=== PATIENT | female | born 1975 | race Caucasian/White ===

== ENCOUNTER 2020-07-21 20:20 | Emergency (ER) | payer OTHER, SELFPAY ==
--- NOTE | 2020-07-21 | US_ITS ---
EXAMINATION: ABDOMINAL ULTRASOUND LIMITED CLINICAL INFORMATION: Right upper quadrant pain. COMPARISON: None. TECHNIQUE: Real-time imaging of the right upper quadrant abdominal viscera. FINDINGS: PANCREAS: The visualized pancreatic head and body are normal in appearance. The remainder of the pancreas is obscured from visualization by the overlying bowel gas. LIVER: The liver is of normal size and echogenicity without focal lesions nor intrahepatic biliary ductal dilation. GALLBLADDER: Normal. The gallbladder is physiologically distended without evidence of stones, sludge, polyps, wall thickening or pericholecystic fluid. COMMON BILE DUCT: The common duct measures 0.8 cm in diameter. RIGHT KIDNEY: Normal. No hydronephrosis. No renal calculi or focal parenchymal lesions. The kidney measures 10.7 cm in maximum dimension. FREE FLUID: None. IMPRESSION: Mild dilation to the extrahepatic common duct. Otherwise, unremarkable limited right upper quadrant ultrasound. No evidence for cholelithiasis.
[2020-07-21 20:30] VITALS: BP 155/78; PULSE 84; RESP 18; TEMP 37.7; BMI 30.1
--- NOTE | 2020-07-21 21:12 | ED.ABDPAIN ---
HPI - Abdominal Pain General Chief Complaint: Abdominal Pain Stated Complaint: Abdominal Pain Time Seen by Provider: 07/21/20 21:12 History of Present Illness HPI narrative: This is a 44-year-old female who presents with 2 days of epigastric /right upper quadrant abdominal discomfort associated with mild nausea but denies any episodes of vomiting and has had a decrease in appetite as well. The pain she describes as crampy in nature and is non radiating and does not worsen with food intake. Otherwise, patient denies fevers, chills, shortness of breath, chest pain / palpitations, diarrhea, or urinary pain / burning / frequency. Related Data Previous Rx's Medication Instructions Recorded omeprazole 40 mg PO DAILY #30 cap 07/22/20 Allergies Allergy/AdvReac Type Severity Reaction Status Date / Time ibuprofen [IBUPROFEN] Allergy Intermediate HIVES Verified 07/21/20 21:46 amoxicillin [AMOXICILLIN] Allergy Unknown HIVES, Verified 07/21/20 21:46 anaphylaxis aspirin [ASPIRIN] Allergy Unknown HIVES, Verified 07/21/20 21:46 anaphylaxis diphenhydramine Allergy Unknown HIVES Verified 07/21/20 21:46 [From BENADRYL] penicillin V Allergy Unknown anaphylaxis Verified 07/21/20 21:46 Penicillins [PENICILLINS] Allergy Unknown HIVES Verified 07/21/20 21:46 pseudoephedrine Allergy Unknown HIVES Verified 07/21/20 21:46 [From SUDAFED] Benadryl Allergy Unknown hives Uncoded 12/20/19 00:00 Peanuts Allergy Unknown anaphylaxis Uncoded 12/20/19 00:00 Shellfish Allergy Unknown anaphylaxis Uncoded 12/20/19 00:00 Review of Systems Review of Systems Pertinent positives and negatives as stated in HPI 10 point review of systems is otherwise negative. Physical Exam Vital Signs and I&O and Narrative: Vital Signs and I&O: Vital Signs Temp 98.6 F 07/21/20 21:40 Pulse 66 07/22/20 00:20 Resp 14 07/22/20 00:20 BP 112/53 L 07/22/20 00:20 Pulse Ox 98 07/22/20 00:20 Intake & Output 07/21/20 07/21/20 07/22/20 06:59 18:59 06:59 Weight 82.024 kg Body Mass Index 30.1 VITAL SIGNS: Reviewed. GENERAL: Well developed, well nourished, in no acute distress. HEAD: Normocephalic/atraumatic, EYES: PERRLA, EOMI intact without pain, no nystagmus/pallor/icterus noted EARS: Ext canals without abnormality, TMs non-bulging and non-erythematous NOSE: Nares patent bilateral OROPHARYNX: no oral lesions noted, posterior pharynx clear and non-erythematous without noted tonsillar enlargement/erythema/exudates NECK: Supple, no adenopathy LUNGS: Normal breath sounds. No adventitious sounds or accessory muscle use. SpO2<> CARDIOVASCULAR: Regular rate and rhythm without noted murmurs, no JVD or lower extremity edema. ABDOMEN: Soft, Mild tenderness on palpation over right upper quadrant, non-distended with bowel sounds. No rigidity. No guarding. No palpable masses or hernias noted MUSCULOSKELETAL: No tenderness, deformities, or effusions noted on gross inspection. EXTREMITIES: No cyanosis, clubbing or edema. SKIN: Inspection of the skin reveals no rashes, ulcerations, jaundice, pallor, or petechiae. NEUROLOGIC: Alert and oriented x 4. Strength and sensation to light touch were grossly intact Course Course Hospital Course: Review of all laboratory, urinalysis, and imaging results is negative for any acute findings to suggest cholelithiasis, cholecystitis, pancreatitis. Patient's nausea resolved with Zofran and she reports improvement after receiving the GI cocktail. All results and findings were discussed with her at bedside and she is aware that she will be discharged with an antacid. MDM - Abdominal Pain MDM Narrative Medical decision making narrative: this is a 44-year-old female with history and clinical presentation suggestive of possible cholecystitis, pancreatitis, gastritis, and doubt diverticulitis. Lab Data Result diagrams: 07/21/20 21:27 07/21/20 21:27 Labs: Lab Results 07/21/20 07/21/20 07/21/20 Range/Units 21:27 21:27 21:44 WBC 6.9 (4.8-10.8) X10*3/uL RBC 5.34 (4.20-5.50) X10*6/uL Hgb 13.7 (12.0-16.0) g/dl Hct 43.3 (37-47) % MCV 81.1 (80-98) fL MCH 25.7 L (27.0-33.0) pg MCHC 31.6 (31.0-35.0) g/dl RDW 14.6 (11.0-16.0) % Plt Count 296 (160-400) X10*3/uL MPV 9.0 L (9.4-12.3) fL Immature Gran % (Auto) 0.4 (0.0-0.4) % Neut % (Auto) 57.3 (45-73) % Lymph % (Auto) 34.3 (20-40) % Barry % (Auto) 5.2 (2-11) % Eos % (Auto) 2.5 (0-4) % Baso % (Auto) 0.3 (0-2) % Neut # (Auto) 4.0 (2.0-8.3) X10*3/uL Lymph # (Auto) 2.4 (1.2-4.9) X10*3/uL Barry # (Auto) 0.4 (0.1-1.2) X10*3/uL Eos # (Auto) 0.2 (0.0-0.4) X10*3/uL Baso # (Auto) 0.0 (0.0-0.2) X10*3/uL Abs Immat Gran (auto) 0.03 (0.00-0.03) X10*3/uL Absolute Nucleated RBC 0.000 (0.0-0.012) X10*3/uL Nucleated RBC % (auto) 0.0 (0.0-0.2) /100WBC Sodium 140 (135-145) mmol/L Potassium 4.2 (3.3-5.1) mmol/l Chloride 106 (96-108) mmol/L Carbon Dioxide 25 (22-29) mmol/L Anion Gap 13 (12-20) BUN 10 (9-16) mg/dL Creatinine 0.85 (0.5-1.4) mg/dL Estim Creat Clear Calc 88.4 Estimated GFR > 60 Random Glucose 107 (60-115) mg/dL Calcium 8.7 (8.4-10.2) mg/dL Total Bilirubin 0.2 (0.0-1.0) mg/dL AST 13 (5-31) U/L ALT 12 (0-31) U/L Alkaline Phosphatase 70 (39-117) U/L Total Protein 7.2 (6.5-8.0) g/dL Albumin 4.2 (3.5-5.0) g/dL Lipase 6 L (8-78) U/L Urine Color YELLOW Urine Appearance HAZY Urine pH 5.5 (5.0-8.0) Ur Specific [place] >= 1.030 H (1.005-1.025) Urine Protein NEG (NEG-TRACE) MG/DL Urine Glucose (UA) NEG (NEG) MG/DL Urine Ketones NEG (NEG) MG/DL Urine Blood NEG (NEG) Urine Nitrite NEG (NEG) Ur Leukocyte Esterase NEG (NEG) Urine Test NEGATIVE (NEGATIVE) Discharge Plan Discharge Clinical Impression: Gastritis Qualifiers: Gastritis type: unspecified gastritis Chronicity: unspecified Gastritis bleeding: without bleeding Qualified Code(s): K29.70 - Gastritis, unspecified, without bleeding Patient Disposition: Home, Self-Care Instructions: Gastritis (ED), Diet for Stomach Ulcers and Gastritis (ED) Additional Instructions: 1. resume all home medications as prescribed. The patient and/or family acknowledge understanding of results (as applicable), diagnosis, treatment plan, need for follow up, and symptoms that should prompt a return to the emergency room. Prescriptions: New omeprazole 40 mg capsule,delayed release(DR/EC) 40 mg PO DAILY Qty: 30 RF: 0 Referrals: Lonnie Smith MD [Primary Care Provider] - 2 days ( discuss further evaluation and management for your gastritis) PMFSH Past Medical History Source: nursing notes reviewed Medical History Asthma Cardiac arrhythmia COPD (chronic obstructive pulmonary disease) Social History Social History Smoking Status: Current every day smoker Use of substances other than those prescribed or required for medical reasons: Yes Substance Use Type: Heroin Substance Use Frequency: Daily Advance Directives: No Advance Directives Information Provided: No
[2020-07-21 21:35] LABS: MANUAL DIFF FLAG NO
[2020-07-21 21:39] LABS: Basophils Percent Auto 0.3 % (0-2); Eosinophils Absolute Auto 0.2 X10*3/uL (0.0-0.4); Eosinophils Percent Auto 2.5 % (0-4); Hematocrit 43.3 % (37-47); Hemoglobin 13.7 g/dl (12.0-16.0); Imm Gran Abs Auto 0.03 X10*3/uL (0.00-0.03); Imm Gran Pct Auto 0.4 % (0.0-0.4); Lymphocytes Absolute Auto 2.4 X10*3/uL (1.2-4.9); Lymphocytes Percent Auto 34.3 % (20-40); Mean Corpuscular HGB Conc 31.6 g/dl (31.0-35.0); Mean Corpuscular Hemoglobin 25.7 pg (27.0-33.0); Mean Corpuscular Volume 81.1 fL (80-98); Monocytes Absolute Auto 0.4 X10*3/uL (0.1-1.2); Monocytes Percent Auto 5.2 % (2-11); Neutrophils Percent Auto 57.3 % (45-73); Platelet Count 296 X10*3/uL (160-400); Red Blood Count 5.34 X10*6/uL (4.20-5.50); Red Cell Distribution Width 14.6 % (11.0-16.0); White Blood Count 6.9 X10*3/uL (4.8-10.8)
[2020-07-21 21:40] VITALS: BP 118/47; PULSE 77; RESP 16; TEMP 37; O2SAT 100
[2020-07-21] MEDS: ondansetron HCL 4 MG/2 ML VIAL IVPUSH (21:47)
[2020-07-21 22:07] LABS: Alanine Aminotransferase 12 U/L (0-31); Albumin Level 4.2 g/dL (3.5-5.0); Alkaline Phosphatase 70 U/L (39-117); Anion Gap 13 (12-20); Aspartate Amino Transferase 13 U/L (5-31); Bilirubin Total 0.2 mg/dL (0.0-1.0); Blood Urea Nitrogen 10 mg/dL (9-16); Calcium 8.7 mg/dL (8.4-10.2); Carbon Dioxide 25 mmol/L (22-29); Chloride 106 mmol/L (96-108); Creatinine Clr Calc Pharmacy 88.4; Estimated Glomerular Filt Rate > 60; Glucose Random 107 mg/dL (60-115); Lipase 6 U/L (8-78); Potassium 4.2 mmol/l (3.3-5.1); Sodium 140 mmol/L (135-145); Total Protein 7.2 g/dL (6.5-8.0)
[2020-07-21 22:14] LABS: Glucose Urine UA NEG (NEG); Leukocyte Esterase Urine NEG (NEG); Nitrite Urine NEG (NEG); PH 5.5 (5.0-8.0); Specific Gravity - Urine >= 1.030 (1.005-1.025); Urine Blood NEG (NEG); Urine Ketones NEG (NEG); Urine Protein NEG (NEG-TRACE)
[2020-07-21 22:47] LABS: Appearance Urine HAZY; Color Urine YELLOW
[2020-07-21 23:24] LABS: UPreg QC Valid YES; Urine Pregnancy NEGATIVE (NEGATIVE)
--- NOTE | 2020-07-21 23:35 | PC.NURSE ---
PT IS SLEEPING AT THIS TIME WITH NO SIGN OF DISTRESS.
[2020-07-21 23:42] VITALS: BP 107/56; PULSE 63; RESP 18; O2SAT 99
[2020-07-22] MEDS: Lidocaine HCl Viscous 2 % 15 ML SOLUTION 10 ML MUCOUS MEM (00:11)
[2020-07-22] MEDS: Magnesium Hydrox/Alum Hydrox 30 ML ORAL.SUSP PO (00:12)
[2020-07-22 00:20] VITALS: BP 112/53; PULSE 66; RESP 14; O2SAT 98
--- NOTE | 2020-07-22 00:44 | PC.NURSE ---
Will review discharge instructions and medications. Pt verbalized understanding.
== END 2020-07-22 00:51 | disposition home or self-care (01) ==
PROVIDERS: Emergency Provider Student in an Organized Health Care Education/Training Program; PCP Internal Medicine
DX: K29.70 Gastritis, unspecified, without bleeding (principal)
CPT/HCPCS: 36415; 76705; 80053; 81003; 81025; 83690; 85025; 96374; 99284; J2405

== ENCOUNTER 2020-12-06 08:54 | Outpatient (REF) | payer OTHER, SELFPAY ==
[2020-12-06 09:43] LABS: MANUAL DIFF FLAG NO
[2020-12-06 10:01] LABS: Basophils Percent Auto 0.4 % (0-2); Eosinophils Absolute Auto 0.2 X10*3/uL (0.0-0.4); Hematocrit 43.3 % (37-47); Hemoglobin 13.7 g/dl (12.0-16.0); Imm Gran Abs Auto 0.02 X10*3/uL (0.00-0.03); Imm Gran Pct Auto 0.4 % (0.0-0.4); Lymphocytes Absolute Auto 1.9 X10*3/uL (1.2-4.9); Lymphocytes Percent Auto 33.5 % (20-40); Mean Corpuscular HGB Conc 31.6 g/dl (31.0-35.0); Mean Corpuscular Hemoglobin 25.3 pg (27.0-33.0); Monocytes Absolute Auto 0.4 X10*3/uL (0.1-1.2); Neutrophils Absolute Auto 3.1 X10*3/uL (2.0-8.3); Neutrophils Percent Auto 55.7 % (45-73); Platelet Count 268 X10*3/uL (160-400); Red Blood Count 5.41 X10*6/uL (4.20-5.50); Red Cell Distribution Width 14.9 % (11.0-16.0); White Blood Count 5.6 X10*3/uL (4.8-10.8)
[2020-12-06 10:28] LABS: Alanine Aminotransferase 14 U/L (0-31); Albumin Level 4.2 g/dL (3.5-5.0); Alkaline Phosphatase 75 U/L (39-117); Anion Gap 13 (12-20); Aspartate Amino Transferase 14 U/L (5-31); Bilirubin Total 0.2 mg/dL (0.0-1.0); Blood Urea Nitrogen 12 mg/dL (9-16); Calcium 8.6 mg/dL (8.4-10.2); Carbon Dioxide 23 mmol/L (22-29); Chloride 107 mmol/L (96-108); Cholesterol 194 mg/dL; Estimated Glomerular Filt Rate > 60; Glucose Fasting 103 mg/dL (60-99); HDL Cholesterol 54 mg/dL; LDL Cholesterol Calculated 126 mg/dl; Potassium 4.3 mmol/L (3.3-5.1); Sodium 139 mmol/L (135-145); Triglycerides 74 mg/dL
[2020-12-06 10:49] LABS: Thyroid Stimulating Hormone 3.38 uIU/mL (0.32-4.0)
== END 2020-12-06 08:55 | disposition home or self-care (01) ==
LOC: HO.LAB 08:54
PROVIDERS: PCP Internal Medicine; Visit Provider Internal Medicine
DX: Z00.00 Encounter for general adult medical examination without abnormal findings (principal); E11.9 Type 2 diabetes mellitus without complications; E03.9 Hypothyroidism, unspecified
CPT/HCPCS: 36415; 80053; 80061; 84443; 85025

== ENCOUNTER 2021-02-11 11:07 | Emergency (ER) | payer OTHER, SELFPAY ==
--- NOTE | ~2021-02-11 | XR_ITS ---
EXAMINATION: XR ANKLE, LEFT XR FOOT, LEFT CLINICAL INFORMATION: Trauma, pain COMPARISON: None TECHNIQUE: 2 views left ankle, 2 views left foot, and a lateral view of the combined left ankle and foot are obtained for a total of 5 views. FINDINGS: There is mild ankle soft tissue swelling, greater on lateral side. The lateral view suggests small ankle capsular effusion. The malleoli are intact and the ankle mortise is symmetric. There is no visible ankle or foot fracture or dislocation. The retrocalcaneal recess is preserved. The subtalar joint is unremarkable. There are borderline posterior and small plantar calcaneal spurs. The midfoot and forefoot are unremarkable. XR/XR foot LT min 3V IMPRESSION: 1. Mild ankle soft tissue swelling with palpable small ankle capsular effusion. 2. No visible fracture or dislocation ankle or foot.
--- NOTE | ~2021-02-11 | XR_ITS ---
EXAMINATION: XR ANKLE, LEFT XR FOOT, LEFT CLINICAL INFORMATION: Trauma, pain COMPARISON: None TECHNIQUE: 2 views left ankle, 2 views left foot, and a lateral view of the combined left ankle and foot are obtained for a total of 5 views. FINDINGS: There is mild ankle soft tissue swelling, greater on lateral side. The lateral view suggests small ankle capsular effusion. The malleoli are intact and the ankle mortise is symmetric. There is no visible ankle or foot fracture or dislocation. The retrocalcaneal recess is preserved. The subtalar joint is unremarkable. There are borderline posterior and small plantar calcaneal spurs. The midfoot and forefoot are unremarkable. XR/XR ankle LT min 3V IMPRESSION: 1. Mild ankle soft tissue swelling with palpable small ankle capsular effusion. 2. No visible fracture or dislocation ankle or foot.
[2021-02-11 11:28] VITALS: BP 112/70; PULSE 78; RESP 18; TEMP 36.5; O2SAT 95; BMI 34.1
--- NOTE | 2021-02-11 13:12 | ED_ITS ---
HPI - Extremity Injury (Lower) General Chief Complaint: Extremity Injury, Lower Stated Complaint: ankle injury - fall Time Seen by Provider: 02/11/21 13:12 History of Present Illness HPI Narrative: Patient complains of left ankle pain after falling and twisting it 2 days ago, no other injury no head injury no headache no neck pain no back pain no numbness weakness or tingling no other extremity injury Related Data Home Medications Medication Instructions Recorded Confirmed aripiprazole 10 mg tablet 10 mg PO QAM 11/21/20 11/21/20 methadone 40 mg soluble tablet 50 mg PO DAILY tab 11/21/20 11/21/20 zolpidem 10 mg tablet 10 mg PO BEDTIME PRN 11/21/20 11/21/20 Previous Rx's Medication Instructions Recorded omeprazole 40 mg PO DAILY #30 cap 07/22/20 albuterol sulfate 90 mcg/actuation 2 puff PO Q6H PRN #8.5 g 11/21/20 aerosol inhaler Allergies Allergy/AdvReac Type Severity Reaction Status Date / Time ibuprofen [IBUPROFEN] Allergy Intermediate HIVES Verified 02/11/21 11:30 amoxicillin [AMOXICILLIN] Allergy Unknown HIVES, Verified 02/11/21 11:30 anaphylaxis aspirin [ASPIRIN] Allergy Unknown HIVES, Verified 02/11/21 11:30 anaphylaxis diphenhydramine Allergy Unknown HIVES Verified 02/11/21 11:30 [From BENADRYL] penicillin V Allergy Unknown anaphylaxis Verified 02/11/21 11:30 Penicillins [PENICILLINS] Allergy Unknown HIVES Verified 02/11/21 11:30 pseudoephedrine Allergy Unknown HIVES Verified 02/11/21 11:30 [From SUDAFED] Benadryl Allergy Unknown hives Uncoded 12/20/19 00:00 Peanuts Allergy Unknown anaphylaxis Uncoded 12/20/19 00:00 Shellfish Allergy Unknown anaphylaxis Uncoded 12/20/19 00:00 Review of Systems Review of Systems: Positive for left ankle pain Negatives are no headache no loss of consciousness no neck pain no back pain no numbness weakness or tingling PMFSH Past Medical History Source: nursing notes reviewed Medical History (Updated 02/12/21 @ 00:01 by Alyssa Hidalgo) Asthma Cardiac arrhythmia COPD (chronic obstructive pulmonary disease) Surgical History No history of previous surgery Family History Family History (Updated 11/21/20 @ 10:34 by Lucila Thomas) Mother Tumor of lung Chronic asthma Father No problems noted. Sister HIV (human immunodeficiency virus infection) Social History Social History (Updated 11/21/20 @ 10:34 by Lucila Thomas) Alcohol intake: never Smoking Status: Current every day smoker Cigarettes Per Day: 3 Substance Use Type: Heroin Advance Directives: No Advance Directives Information Provided: Yes Physical Exam Vital Signs: Vital Signs: Last Vital Signs Temp 97.7 F 02/11/21 11:28 Pulse 78 02/11/21 11:28 Resp 18 02/11/21 11:28 BP 112/70 02/11/21 11:28 Pulse Ox 95 02/11/21 11:28 Body Mass Index 34.1 General appearance no acute distress, and cooperative A&O x3 Head is normocephalic atraumatic Neck supple nontender Back full range of motion Respiratory no acute distress Extremities the left ankle has tenderness and swelling around lateral malleolus and dorsal proximal lateral aspect of the foot, neurovascular intact distal, skin is otherwise intact without laceration or wound Other extremities normal Neuro no focal motor or sensory deficit Course Course Course Narrative: No broken bone was seen on x-ray, but there was a small effusion seen Patient complains that it is difficult for her to dorsiflex her foot, but the foot was held in a middle position it was not flopping and I suspect the difficulty dorsiflexing the foot is from swelling and pain, but I did advise patient to follow closely with Orthopedics for recheck and make sure that as swelling and pain he has dorsiflexion becomes normal so she will follow with [facility] [place] [facility] Discharge Plan Discharge Clinical Impression: Left ankle sprain Patient Disposition: Home, Self-Care Additional Instructions: X-ray showed some fluid in the joint which can happen after injuries but no broken bone was seen Your difficulty flexing the foot upwards should be rechecked in a few days follow with orthopedist for further evaluation, you can call them to make an appointment Return any time any worse condition or any concerns Elevate foot and ankle and apply ice Prescriptions: No Action omeprazole 40 mg capsule,delayed release(DR/EC) 40 mg PO DAILY Qty: 30 RF: 0 zolpidem 10 mg tablet 10 mg PO BEDTIME PRNRF: 0 aripiprazole 10 mg tablet 10 mg PO QAM RF: 0 methadone 40 mg tablet,soluble 50 mg PO DAILY RF: 0 albuterol sulfate 90 mcg/actuation HFA aerosol inhaler 2 puff PO Q6H PRN (Reason: bronchospasm) Qty: 8.5 RF: 8 Referrals: Rao Otoole MD [Physician] - 2 days (Ankle sprain, difficulty with dorsiflexion) Interventions: ED Discharge Assessment Last Done: 02/11/21 13:22 Discharge Date/Time: 02/11/21 13:23
== END 2021-02-11 13:23 | disposition home or self-care (01) ==
PROVIDERS: Emergency Provider Emergency Medicine; PCP Internal Medicine
DX: S93.402A Sprain of unspecified ligament of left ankle, initial encounter (principal); W06.XXXA Fall from bed, initial encounter; M25.472 Effusion, left ankle; Y93.84 Activity, sleeping; Y92.013 Bedroom of single-family (private) house as the place of occurrence of the external cause; Y99.9 Unspecified external cause status; F17.200 Nicotine dependence, unspecified, uncomplicated; F11.90 Opioid use, unspecified, uncomplicated
CPT/HCPCS: 73610; 73630; 99283

== ENCOUNTER 2021-07-21 13:47 | Emergency (ER) | payer OTHER, SELFPAY ==
[2021-07-21 15:28] VITALS: BP 97/65; PULSE 80; RESP 18; TEMP 37.1; O2SAT 97; BMI 34.1
== END 2021-07-21 18:10 | disposition left against medical advice (07) ==
LOC: HO.ED 18:05
PROVIDERS: Emergency Provider Emergency Medicine; PCP Internal Medicine
DX: M54.50 Low back pain, unspecified (principal)
CPT/HCPCS: 99281

== ENCOUNTER 2021-07-22 12:55 | Emergency (ER) | payer OTHER, SELFPAY ==
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
[2021-07-22 13:36] VITALS: BP 116/70; PULSE 82; RESP 18; TEMP 35.9; O2SAT 96; BMI 34.1
[2021-07-22 18:00] VITALS: BP 120/65; PULSE 67; RESP 16; TEMP 36.3; O2SAT 98
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
== END 2021-07-22 19:03 | disposition home or self-care (01) ==
PROVIDERS: Emergency Provider Emergency Medicine; PCP Internal Medicine
DX: S06.0X9A Concussion with loss of consciousness of unspecified duration, initial encounter (principal); S13.4XXA Sprain of ligaments of cervical spine, initial encounter; S29.011A Strain of muscle and tendon of front wall of thorax, initial encounter; S16.1XXA Strain of muscle, fascia and tendon at neck level, initial encounter; R07.81 Pleurodynia; M54.6 Pain in thoracic spine; G44.309 Post-traumatic headache, unspecified, not intractable; V43.62XA Car passenger injured in collision with other type car in traffic accident, initial encounter; Y93.9 Activity, unspecified; Y92.410 Unspecified street and highway as the place of occurrence of the external cause; Y99.9 Unspecified external cause status; Z79.899 Other long term (current) drug therapy
CPT/HCPCS: 70450; 71101; 72072; 72125; 73000; 99284

== ENCOUNTER 2021-07-29 09:38 | Outpatient (REF) | payer OTHER, SELFPAY ==
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
[2021-07-29 09:47] LABS: MANUAL DIFF FLAG NO
[2021-07-29 10:04] LABS: Basophils Percent Auto 0.4 % (0-2); Eosinophils Absolute Auto 0.2 X10*3/uL (0.0-0.4); Eosinophils Percent Auto 4.6 % (0-4); Hematocrit 41.9 % (37-47); Hemoglobin 13.1 g/dl (12.0-16.0); Imm Gran Abs Auto 0.01 X10*3/uL (0.00-0.03); Imm Gran Pct Auto 0.2 % (0.0-0.4); Lymphocytes Percent Auto 40.8 % (20-40); Mean Corpuscular HGB Conc 31.3 g/dl (31.0-35.0); Mean Corpuscular Volume 80.1 fL (80-98); Mean Platelet Volume 8.9 fL (9.4-12.3); Monocytes Absolute Auto 0.5 X10*3/uL (0.1-1.2); Monocytes Percent Auto 10.2 % (2-11); Neutrophils Absolute Auto 2.2 X10*3/uL (2.0-8.3); Neutrophils Percent Auto 43.8 % (45-73); Platelet Count 248 X10*3/uL (160-400); Red Blood Count 5.23 X10*6/uL (4.20-5.50); Red Cell Distribution Width 14.3 % (11.0-16.0)
[2021-07-29 10:30] LABS: Alanine Aminotransferase 18 U/L (0-31); Albumin Level 3.9 g/dL (3.5-5.0); Alkaline Phosphatase 83 U/L (39-117); Anion Gap 10 (12-20); Aspartate Amino Transferase 19 U/L (5-31); Bilirubin Total 0.5 mg/dL (0.0-1.0); Blood Urea Nitrogen 9 mg/dL (9-16); Calcium 9.2 mg/dL (8.4-10.2); Carbon Dioxide 27 mmol/L (22-29); Chloride 107 mmol/L (96-108); Estimated Glomerular Filt Rate > 60; Glucose Random 94 mg/dL (60-115); Potassium 4.2 mmol/L (3.3-5.1); Sodium 140 mmol/L (135-145); Total Protein 6.8 g/dL (6.5-8.0)
== END 2021-07-29 09:39 | disposition home or self-care (01) ==
LOC: HO.XRAY 09:38
PROVIDERS: PCP Internal Medicine; Visit Provider Internal Medicine
DX: L03.115 Cellulitis of right lower limb (principal); M79.671 Pain in right foot
CPT/HCPCS: 36415; 73630; 80053; 85025

== ENCOUNTER 2024-06-14 12:32 | Outpatient (AMB) | payer OTHER, SELFPAY ==
[2024-06-14 12:41] VITALS: BP 136/70; PULSE 88; O2SAT 93; BMI 27.1
--- NOTE | 2024-06-14 12:41 | A.OFFPC_ITS ---
Vital Signs 06/14/24 12:41 Height 5 ft 5 in Weight 163 lb BMI 27.1 BP 136/70 Blood Pressure Location Rt brachial Position Sitting Pulse 88 Pulse Source Pulse Oximeter Pulse Oximetry (%) 93 Oxygen Delivery Method Room Air Intake Visit Reasons: LT shoulder pain Weeder Required: No Allergies ibuprofen [IBUPROFEN] Allergy (Intermediate, Verified 06/14/24 12:48) HIVES amoxicillin [AMOXICILLIN] Allergy (Unknown, Verified 06/14/24 12:48) HIVES, anaphylaxis aspirin [ASPIRIN] Allergy (Unknown, Verified 06/14/24 12:48) HIVES, anaphylaxis diphenhydramine [From BENADRYL] Allergy (Unknown, Verified 06/14/24 12:48) HIVES penicillin V Allergy (Unknown, Verified 06/14/24 12:48) anaphylaxis Penicillins [PENICILLINS] Allergy (Unknown, Verified 06/14/24 12:48) HIVES pseudoephedrine [From SUDAFED] Allergy (Unknown, Verified 06/14/24 12:48) HIVES Benadryl Allergy (Unknown, Uncoded 06/14/24 12:48) hives Peanuts Allergy (Unknown, Uncoded 06/14/24 12:48) anaphylaxis Shellfish Allergy (Unknown, Uncoded 06/14/24 12:48) anaphylaxis Medication List - Last Reconciled 06/14/24 by Lonnie Smith MD albuterol sulfate 90 mcg/actuation 2 puffs PO Q6H PRN epinephrine (EpiPen 2-Иван) 0.3 mg (0.3 mL) IM Q4H PRN Tobacco use date assessed: 06/14/24 Dental Screening Dental Screen Date: 06/14/24 Did you have a dental visit in the last 12 months?: No Did you have a dental problem in the last 6 months where you did not have access to dental care?: No Was dental information given to patient?: Patient has dentist HPI LT shoulder pain HPI Details left shoulder pain for a few weeks; no known injury [facility] Medical History (Updated 06/14/24 @ 14:00 by Lonnie Smith MD) Bilateral leg edema Class 1 obesity with body mass index (BMI) of 32.0 to 32.9 in adult Heroin use disorder, mild Right foot pain Cellulitis of right foot COPD (chronic obstructive pulmonary disease) Cardiac arrhythmia Asthma Surgical History No history of previous surgery Family History Mother Tumor of lung Chronic asthma Father No problems noted. Sister HIV (human immunodeficiency virus infection) Family/Other Substance use disorder Mental health disorder Social History Housing: Apartment Alcohol intake: never Patient Tobacco Use Status: Current everyday Tobacco user Tobacco use type: Cigarette Cigarette Packs Per Day: 1 e-Cigarette/Vaping Use: Never Used Second Hand Smoke Exposure: No Substance Use Type: Heroin service: No Current occupational status: unemployed Cognitive needs: No Hearing needs: No Vision needs: Yes Questionnaire PHQ-9 Over the last 2 weeks, how often have you been bothered by any of the following problems? 1. Little interest or pleasure in doing things: nearly every day 2. Feeling down, depressed, or hopeless: not at all 3. Trouble falling or staying asleep, or sleeping too much: not at all 4. Feeling tired or having little energy: not at all 5. Poor appetite or overeating: not at all 6. Feeling bad about yourself - or that you are a failure or have let yourself or your family down: more than half the days 7. Trouble concentrating on things, such as reading the newspaper or watching television: not at all 8. Moving or speaking so slowly that other people could have noticed. Or the opposite - being so fidgety or restless that you have been moving around a lot more than usual: not at all 9. Thoughts that you would be better off or of hurting yourself in some way: not at all Total score: 5 Depression Screening Interpretation: Negative Depression Screening Done: Yes Source: Developed by Drs. Coy Vidal, Page London, Petar Barber and colleagues, with an educational yesika from [employer]. Thrive Questionnaire Date Thrive assessed: 06/14/24 I am a: Patient What is your living situation today?: I have a steady place to live Within the past 12 months, did the food you bought not last and you didn't have the money to get more?: Never true Within the past 12 months, did you worry whether your food would run out before you got money to buy more?: Never true THRIVE Score: 0 AUDIT C Alcohol Use Questionnaire (AUDIT-C) 1. How often do you have a drink containing alcohol?: Never Total Score: 0 Score Reviewed/Action Taken: Yes BONNIE-7 AMB Questionnaire BONNIE-7 Date BONNIE - 7 assessed: 06/14/24 Feeling nervous, anxious, or on edge: 1 = Several days Not being able to stop or control worryin = Several days Worrying too much about different things: 0 = Not at all Trouble relaxin = Not at all Being so restless that it is hard to sit still: 0 = Not at all Becoming easily annoyed or irritable: 0 = Not at all Feeling afraid as if something awful might happen: 0 = Not at all Total BONNIE-7 score (0-4 normal; 5-9 mild; 10-14 moderate; 15-21 severe): 2 Source: Developed by Drs. Coy Vidal, Page oLndon, Petar Barber and colleagues, with an educational yesika from [employer]. BONNIE-7 Assessment Billing BONNIE-7 Assessment Tool: BONNIE-7 Assessment 66371 Review of Systems Const Denies chills, Denies headache(s) and Denies weight loss ENT Denies headache(s) Card Denies chest pain, Denies syncope, Denies irregular heart rhythm and Denies dyspnea Resp Denies chest congestion, Denies cough and Denies dyspnea GI Denies abdominal pain, Denies change in stool character, Denies nausea and Denies vomiting Musc Denies deformity and Denies joint swelling Neuro Denies syncope and Denies headache(s) Physical exam (Primary Care) Vital Signs: Last Vital Signs Pulse 88 06/14/24 12:41 BP 136/70 06/14/24 12:41 Pulse Ox 93 06/14/24 12:41 Oxygen Delivery Method Room Air 06/14/24 12:41 BMI result Body Mass Index 27.1 Tobacco/Smoking Status: Tobacco use Status Tobacco use date assessed 06/14/24 06/14/24 12:52 Patient Tobacco Use Status Current everyday Tobacco 06/14/24 12:44 Tobacco use type Cigarette 06/14/24 12:44 e-Cigarette/Vaping Use Never Used 06/14/24 12:44 PHQ-9: PHQ-9 Score PHQ-9: Total score 5 06/14/24 12:52 Depression Screening Interpretation: Negative Thrive Assessment: Date of Thrive Assessment Date Thrive assessed 06/14/24 06/14/24 12:52 Const General: cooperative, comfortable, no acute distress and alert Neck Neck: Yes no lymphadenopathy Thyroid: Thyroid normal Resp Effort & Inspection: normal respiratory effort Auscultation: clear to auscultation bilaterally Percussion: percussion normal Cardio Jugular venous distension: no JVD Palpation: normal PMI Rate: regular rate Rhythm: regular rhythm Heart sounds: S1 normal heart sound present and S2 normal heart sound present GI Inspection: Yes normal to inspection Palpation (GI): No hepatosplenomegaly present Skin General skin exam: no rashes or lesions noted Extrem General: Yes no clubbing, cyanosis or edema Assessment and Plan Assessment & Plan (1) Shoulder pain: Code(s): M25.519 - Pain in unspecified shoulder Plan: xr ice and nsaids Orders: Orders XR shoulder LT min 2V Today M25.519 - Pain in unspecified shoulder Coding Level of Care Code Est Pt Level 3 (99716) Diagnoses Shoulder pain M25.519 Additional Codes BONNIE-7 Assessment Billing - BONNIE-7 Assessment Tool: BONNIE-7 Assessment 35202 ([id number]) PHQ-9 - 63989 - PHQ-9 Billing: ([id number])
== END 2024-06-14 13:24 | disposition home or self-care (01) ==
PROVIDERS: PCP Internal Medicine; Visit Provider Internal Medicine
DX: M25.512 Pain in left shoulder (principal)
CPT/HCPCS: 99213

== ENCOUNTER 2024-12-28 13:42 | Outpatient (AMB) | payer OTHER, SELFPAY ==
--- NOTE | 2024-12-28 13:46 | A.OFFPC_ITS ---
Vital Signs 12/28/24 13:48 Height 5 ft 5 in Weight 180 lb BMI 30.0 BP 110/68 Blood Pressure Location Lt brachial Position Sitting Pulse 74 Pulse Source Pulse Oximeter Pulse Oximetry (%) 97 Oxygen Delivery Method Room Air Intake Visit Reasons: Annual PE Intake Note: Patient here for a physical exam Outbound Call Center Representative Required: No Accompanied by: Self / Same As Patient Allergies ibuprofen [IBUPROFEN] Allergy (Intermediate, Verified 12/28/24 13:49) HIVES amoxicillin [AMOXICILLIN] Allergy (Unknown, Verified 12/28/24 13:49) HIVES, anaphylaxis aspirin [ASPIRIN] Allergy (Unknown, Verified 12/28/24 13:49) HIVES, anaphylaxis diphenhydramine [From BENADRYL] Allergy (Unknown, Verified 12/28/24 13:49) HIVES penicillin V Allergy (Unknown, Verified 12/28/24 13:49) anaphylaxis Penicillins [PENICILLINS] Allergy (Unknown, Verified 12/28/24 13:49) HIVES pseudoephedrine [From SUDAFED] Allergy (Unknown, Verified 12/28/24 13:49) HIVES Benadryl Allergy (Unknown, Uncoded 06/14/24 12:48) hives Peanuts Allergy (Unknown, Uncoded 06/14/24 12:48) anaphylaxis Shellfish Allergy (Unknown, Uncoded 06/14/24 12:48) anaphylaxis Medication List - Last Reconciled 12/29/24 by Lonnie Smith MD albuterol sulfate 90 mcg/actuation 2 puffs PO Q6H PRN epinephrine (EpiPen 2-Иван) 0.3 mg (0.3 mL) IM Q4H PRN melatonin mg PO topiramate mg PO Tobacco use date assessed: 12/28/24 Dental Screening Dental Screen Date: 12/28/24 Did you have a dental visit in the last 12 months?: No Did you have a dental problem in the last 6 months where you did not have access to dental care?: No Was dental information given to patient?: Patient has dentist HPI Annual PE HPI Details asthma; stable; lives in half way house for substance abuse; doing well [facility] Medical History (Updated 12/29/24 @ 10:23 by Lonnie Smith MD) Bilateral leg edema Class 1 obesity with body mass index (BMI) of 32.0 to 32.9 in adult Heroin use disorder, mild Right foot pain Cellulitis of right foot COPD (chronic obstructive pulmonary disease) Cardiac arrhythmia Asthma Surgical History No history of previous surgery Family History Mother Tumor of lung Chronic asthma Father No problems noted. Sister HIV (human immunodeficiency virus infection) Family/Other Substance use disorder Mental health disorder Social History Housing: Apartment Alcohol intake: never Patient Tobacco Use Status: Current everyday Tobacco user Tobacco use type: Cigarette Cigarettes Per Day: 3 e-Cigarette/Vaping Use: Never Used Second Hand Smoke Exposure: No Substance Use Type: Heroin service: No Current occupational status: unemployed Cognitive needs: No Hearing needs: No Vision needs: Yes Questionnaire PHQ-9 Over the last 2 weeks, how often have you been bothered by any of the following problems? 1. Little interest or pleasure in doing things: several days 2. Feeling down, depressed, or hopeless: several days 3. Trouble falling or staying asleep, or sleeping too much: several days 4. Feeling tired or having little energy: several days 5. Poor appetite or overeating: not at all 6. Feeling bad about yourself - or that you are a failure or have let yourself or your family down: several days 7. Trouble concentrating on things, such as reading the newspaper or watching television: several days 8. Moving or speaking so slowly that other people could have noticed. Or the opposite - being so fidgety or restless that you have been moving around a lot more than usual: not at all 9. Thoughts that you would be better off or of hurting yourself in some way: not at all Total score: 6 Depression Screening Interpretation: Positive Depression Screening Done: Yes Source: Developed by Drs. Coy Vidal, Page London, Petar Barber and colleagues, with an educational yesika from [employer]. Thrive Questionnaire Date Thrive assessed: 12/28/24 I am a: Patient What is your living situation today?: I have a steady place to live Within the past 12 months, did the food you bought not last and you didn't have the money to get more?: Sometimes True Within the past 12 months, did you worry whether your food would run out before you got money to buy more?: Sometimes True Do you have trouble paying for medicines?: No Do you have trouble getting transportation to medical appointments?: No Do you have trouble paying your heating and electricity bill?: No Do you have trouble taking care of your child, family member or friend?: No Do you have trouble with day-to-day activities such as bathing, preparing meals, shopping, managing finances, etc.?: No Are you currently unemployed and looking for a job?: No Are you interested in more education?: Yes Please select the resources that you would like help with: Housing/Assisted, Daily support and Education Currently or been in a relationship where the following occur: No concerns reported THRIVE Score: 2 AUDIT C Alcohol Use Questionnaire (AUDIT-C) 1. How often do you have a drink containing alcohol?: Never Total Score: 0 BONNIE-7 AMB Questionnaire BONNIE-7 Date BONNIE - 7 assessed: 12/28/24 Feeling nervous, anxious, or on edge: 1 = Several days Not being able to stop or control worryin = Several days Worrying too much about different things: 1 = Several days Trouble relaxin = Several days Being so restless that it is hard to sit still: 1 = Several days Becoming easily annoyed or irritable: 1 = Several days Feeling afraid as if something awful might happen: 1 = Several days Total BONNIE-7 score (0-4 normal; 5-9 mild; 10-14 moderate; 15-21 severe): 7 Source: Developed by Drs. Coy Vidal, Page London, Petar Barber and colleagues, with an educational yesika from [employer]. Review of Systems Const Denies chills, Denies fatigue, Denies headache(s) and Denies weight loss Eyes Denies change in vision, Denies diplopia and Denies eye pain ENT Denies vertigo, Denies dizziness, Denies headache(s) and Denies nasal discharge Card Denies chest pain, Denies rapid heart rate and Denies dyspnea on exertion Resp Denies chest congestion, Denies cough, Denies pain with cough and Denies dyspnea on exertion GI Denies abdominal pain, Denies hematochezia and Denies change in bowel habits Musc Denies myalgias, Denies arthralgias and Denies joint swelling Skin/Breast Denies lesions and Denies unusual bruising Neuro Denies vertigo, Denies dizziness, Denies headache(s) and Denies focal weakness Endo Denies fatigue Physical exam (Primary Care) Vital Signs: Last Vital Signs Pulse 74 12/28/24 13:48 BP 110/68 12/28/24 13:48 Pulse Ox 97 12/28/24 13:48 Oxygen Delivery Method Room Air 12/28/24 13:48 BMI result Body Mass Index 30.0 Tobacco/Smoking Status: Tobacco use Status Tobacco use date assessed 12/28/24 12/28/24 13:54 Patient Tobacco Use Status Current everyday Tobacco 12/28/24 13:54 Tobacco use type Cigarette 12/28/24 13:54 e-Cigarette/Vaping Use Never Used 12/28/24 13:54 PHQ-9: PHQ-9 Score PHQ-9: Total score 6 12/28/24 13:54 Depression Screening Interpretation: Positive Thrive Assessment: Date of Thrive Assessment Date Thrive assessed 12/28/24 12/28/24 13:54 Currently or been in a relationship where the following occur: No concerns reported Const General: cooperative, healthy appearing and no acute distress Orientation/consciousness: oriented to person, oriented to place and oriented to time [facility] Head: Yes normal to inspection, Yes normocephalic and Yes atraumatic Mouth: Normal oral and palatal mucosa present and tongue normal Throat: Yes posterior oropharynx normal and Yes uvula midline Eyes General: appearance normal, both eyes and all related structures Neck Neck: Yes normal visual inspection, Yes full ROM and Yes no lymphadenopathy Thyroid: Thyroid normal Carotids: normal carotid upstroke Chest Chest palpation & inspection: normal inspection of the chest Resp Effort & Inspection: normal respiratory effort and able to speak in complete sentences Auscultation: clear to auscultation bilaterally Cardio Jugular venous distension: no JVD Palpation: normal PMI Rate: regular rate Rhythm: regular rhythm Heart sounds: S1 normal heart sound present and S2 normal heart sound present GI Inspection: Yes normal to inspection Palpation (GI): Soft to palpation and No hepatosplenomegaly present Auscultation: normal bowel sounds General: Yes no CVA tenderness Back/Spine/Pelvis Back: no CVA tenderness Skin General skin exam: no rashes or lesions noted Neuro General: oriented to person, oriented to place and oriented to time Extrem General: Yes normal to inspection and Yes full ROM Coding Level of Care Code Est Pt Prev Care 40-64y(01472) Diagnoses Physical exam Z00.00 Asthma J45.909 Assessment & Plan Assessment & Plan (1) Physical exam: Code(s): Z00.00 - Encounter for general adult medical examination without abnormal findings Category: Medical Plan: stable; do labs (2) Asthma: Code(s): J45.909 - Unspecified asthma, uncomplicated Category: Medical Plan: stable; same rx Orders: Orders Lipid Panel 12/28/24 Z13.220 - Encounter for screening for lipoid disorders Thyroid Stimulating Hormone 12/28/24 Z13.29 - Encounter for screening for other suspected endocrine disorder Complete Blood Count Auto Diff 12/28/24 Z13.0 - Encounter for screening for diseases of the blood and blood-forming organs and certain disorders involving the immune mechanism XR shoulder LT min 2V 12/28/24 M25.519 - Pain in unspecified shoulder XR shoulder RT min 2V 12/28/24 M25.519 - Pain in unspecified shoulder Comprehensive [place]. Panel Fast 12/28/24 Z13.9 - Encounter for screening, unspecified
[2024-12-28 13:48] VITALS: BP 110/68; PULSE 74; O2SAT 97
== END 2024-12-28 14:06 | disposition home or self-care (01) ==
LOC: HO.HMCH 13:43
PROVIDERS: PCP Internal Medicine; Visit Provider Internal Medicine
DX: Z00.00 Encounter for general adult medical examination without abnormal findings (principal); J45.909 Unspecified asthma, uncomplicated

== ENCOUNTER → 2024-12-28 13:42 | Outpatient (BNVA) | payer OTHER, SELFPAY | PROVIDERS: PCP Internal Medicine; Visit Provider Internal Medicine | DX: Z00.00 Encounter for general adult medical examination without abnormal findings (principal); J45.909 Unspecified asthma, uncomplicated | CPT/HCPCS: 99396 ==

== ENCOUNTER 2025-01-04 09:35 | Outpatient (REF) | payer OTHER, SELFPAY ==
--- NOTE | ~2025-01-04 | XR_ITS ---
EXAMINATION: XR SHOULDER 2 OR MORE VIEWS LEFT HISTORY: M25.519 - Pain in unspecified shoulder COMPARISON: There are no prior studies available for comparison. FINDINGS: Four views of the left shoulder are submitted. Osseous mineralization is normal. There is no fracture or dislocation. The glenohumeral joint is maintained. There is mild to moderate osteoarthritis of the AC joint with osteophyte formation. The soft tissues are unremarkable. XR/XR shoulder LT min 2V IMPRESSION: Mild to moderate osteoarthritis of the AC joint. Electronically signed by: Coy Cano MD 01/04/2025 03:23 PM EDT
--- NOTE | ~2025-01-04 | XR_ITS ---
EXAMINATION: XR SHOULDER 2 OR MORE VIEWS RIGHT HISTORY: M25.519 - Pain in unspecified shoulder COMPARISON: There are no prior studies available for comparison. FINDINGS: Four views of the right shoulder are submitted. Osseous mineralization is normal. There is no fracture or dislocation. The glenohumeral joint is maintained. There is severe osteoarthritis of the AC joint, with joint space narrowing and osteophyte formation. The soft tissues are unremarkable. XR/XR shoulder RT min 2V IMPRESSION: Severe osteoarthritis of the AC joint. Electronically signed by: Coy Cano MD 01/04/2025 03:22 PM EDT
[2025-01-04 09:48] LABS: MANUAL DIFF FLAG NO
[2025-01-04 10:37] LABS: Basophils Percent Auto 0.4 % (0-2); Eosinophils Absolute Auto 0.2 X10*3/uL (0.0-0.4); Eosinophils Percent Auto 3.6 % (0-4); Hematocrit 39.2 % (37.0-47.0); Hemoglobin 12.8 g/dl (12.0-16.0); Imm Gran Abs Auto 0.01 X10*3/uL (0.00-0.03); Imm Gran Pct Auto 0.2 % (0.0-0.4); Lymphocytes Absolute Auto 2.4 X10*3/uL (1.2-4.9); Lymphocytes Percent Auto 44.9 % (20-40); Mean Corpuscular HGB Conc 32.7 g/dl (31.0-35.0); Mean Corpuscular Hemoglobin 25.5 pg (27.0-33.0); Mean Corpuscular Volume 78.2 fL (80.0-98.0); Mean Platelet Volume 9.1 fL (9.4-12.3); Monocytes Absolute Auto 0.4 X10*3/uL (0.1-1.2); Monocytes Percent Auto 6.6 % (2-11); Neutrophils Absolute Auto 2.4 x10*3/uL (2.0-8.3); Neutrophils Percent Auto 44.3 % (45-73); Platelet Count 210 X10*3/uL (160-400); Red Blood Count 5.01 X10*6/uL (4.20-5.50); Red Cell Distribution Width 15.1 % (11.0-16.0); White Blood Count 5.3 X10*3/uL (4.8-10.8)
[2025-01-04 11:20] LABS: Alanine Aminotransferase 18 U/L (0-31); Albumin Level 4.3 g/dL (3.5-5.0); Alkaline Phosphatase 73 U/L (39-117); Anion Gap 11 (12-20); Aspartate Amino Transferase 18 U/L (5-31); Bilirubin Total 0.3 mg/dL (0.0-1.0); Blood Urea Nitrogen 21 mg/dL (9-16); Calcium 9.3 mg/dL (8.4-10.2); Carbon Dioxide 22 mmol/L (22-29); Chloride 111 mmol/L (96-108); Cholesterol 202 mg/dL (<200); Estimated Glomerular Filt Rate > 60; Glucose Fasting 85 mg/dL (60-99); HDL Cholesterol 65 mg/dL (>40); LDL Cholesterol Calculated 113 mg/dL (<100); Potassium 3.9 mmol/L (3.3-5.1); Sodium 140 mmol/L (135-145); Thyroid Stimulating Hormone 1.69 uIU/mL (0.32-4.0); Total Protein 7.6 g/dL (6.5-8.0); Triglycerides 123 mg/dL (<150)
== END 2025-01-04 09:36 | disposition home or self-care (01) ==
LOC: HO.XRAY 09:35
PROVIDERS: PCP Internal Medicine; Visit Provider Internal Medicine
DX: M25.511 Pain in right shoulder (principal); M25.512 Pain in left shoulder; M19.012 Primary osteoarthritis, left shoulder; M19.011 Primary osteoarthritis, right shoulder; Z13.220 Encounter for screening for lipoid disorders; Z13.29 Encounter for screening for other suspected endocrine disorder; Z13.0 Encounter for screening for diseases of the blood and blood-forming organs and certain disorders involving the immune mechanism; Z13.9 Encounter for screening, unspecified
CPT/HCPCS: 36415; 73030; 80053; 80061; 84443; 85025

== ENCOUNTER → 2025-01-04 09:49 | Outpatient (BNV) | payer OTHER, SELFPAY | PROVIDERS: PCP Internal Medicine; Visit Provider Radiology Diagnostic Radiology | DX: M19.011 Primary osteoarthritis, right shoulder (principal); M19.012 Primary osteoarthritis, left shoulder | CPT/HCPCS: 73030 ==

== ENCOUNTER 2025-04-04 13:16 | Outpatient (AMB) | payer OTHER, SELFPAY ==
--- NOTE | 2025-04-04 13:56 | MHC.PC.OV ---
Vital Signs 04/04/25 13:57 Height 5 ft 5 in Weight 195 lb 6 oz BMI 32.5 BP 130/60 Blood Pressure Location Lt brachial Position Sitting Pulse 73 Pulse Source Pulse Oximeter Temp 97.3 F Temp Source Temporal Artery Scan Pulse Oximetry (%) 96 Oxygen Delivery Method Room Air Intake Visit Reasons: DARY Dr Smith Intake Note: Patient is here today for DARY from Dr Smith Catalogue Maker Required: No Radial Drill Operator: Present Accompanied by: Spouse Allergies ibuprofen (IBUPROFEN) Allergy (Intermediate, Verified 04/04/25 14:18) HIVES amoxicillin (AMOXICILLIN) Allergy (Unknown, Verified 04/04/25 14:18) HIVES, anaphylaxis aspirin (ASPIRIN) Allergy (Unknown, Verified 04/04/25 14:18) HIVES, anaphylaxis diphenhydramine (From BENADRYL) Allergy (Unknown, Verified 04/04/25 14:18) HIVES penicillin V Allergy (Unknown, Verified 04/04/25 14:18) anaphylaxis Penicillins (PENICILLINS) Allergy (Unknown, Verified 04/04/25 14:18) HIVES pseudoephedrine (From SUDAFED) Allergy (Unknown, Verified 04/04/25 14:18) HIVES Benadryl Allergy (Unknown, Uncoded 04/04/25 14:18) hives Peanuts Allergy (Unknown, Uncoded 04/04/25 14:18) anaphylaxis Shellfish Allergy (Unknown, Uncoded 04/04/25 14:18) anaphylaxis Medication List - Last Reconciled 04/04/25 by Cammie Parks PA-C albuterol sulfate 90 mcg/actuation 2 puffs PO Q6H PRN epinephrine (EpiPen 2-Иван) 0.3 mg (0.3 mL) IM Q4H PRN melatonin mg PO nicotine (polacrilex) 4 mg buccal Q8H PRN topiramate mg PO Tobacco use date assessed: 04/04/25 Dental Screening Dental Screen Date: 12/28/[address] Smith HPI Details 49-year-old female with past medical history of asthma, heroin use disorder, obesity, depression last seen by Dr. Smith 12/2024 coming in for transfer of care. Presenting for a transfer of care and management of chronic conditions. The patient reports infrequent use of her inhaler, primarily when experiencing dyspnea during exertion such as climbing stairs. The patient has a history of depression and is currently managed with counseling at multiple locations, including a methadone clinic and her place of residence. Recent imaging revealed mild to moderate arthritis in the left shoulder and severe arthritis in the right shoulder, causing significant discomfort and sleep disturbances. The patient has a history of substance use and currently resides in a jail house. She reports being clean and in treatment since November 22. The patient experiences discomfort from spider veins, particularly in one leg, and has been advised on management strategies including exercise, compression stockings, and leg elevation. Patient is also receiving post exposure prophylaxis HIV medication and has 9 months left to complete could treatment. [facility] Medical History Heroin use disorder, mild Bilateral leg edema Class 1 obesity with body mass index (BMI) of 32.0 to 32.9 in adult Right foot pain Cellulitis of right foot COPD (chronic obstructive pulmonary disease) Cardiac arrhythmia Asthma Surgical History No history of previous surgery Family History Mother Tumor of lung Chronic asthma Father No problems noted. Sister HIV (human immunodeficiency virus infection) Family/Other Substance use disorder Mental health disorder Social History Housing: Apartment Alcohol intake: never Patient Tobacco Use Status: Former Tobacco user Tobacco use type: Cigarette Cigarette Packs Per Day: 0.5 Cigarettes Per Day: 3 e-Cigarette/Vaping Use: Currently Using Second Hand Smoke Exposure: Yes Substance Use Type: Heroin service: No Current occupational status: unemployed Cognitive needs: No Hearing needs: No Vision needs: Yes Questionnaire Thrive Questionnaire Date Thrive assessed: 12/28/24 I am a: Patient What is your living situation today?: I have a steady place to live Within the past 12 months, did the food you bought not last and you didn't have the money to get more?: Sometimes True Within the past 12 months, did you worry whether your food would run out before you got money to buy more?: Sometimes True Do you have trouble paying for medicines?: No Do you have trouble getting transportation to medical appointments?: No Do you have trouble paying your heating and electricity bill?: No Do you have trouble taking care of your child, family member or friend?: No Do you have trouble with day-to-day activities such as bathing, preparing meals, shopping, managing finances, etc.?: No Are you currently unemployed and looking for a job?: No Are you interested in more education?: Yes Currently or been in a relationship where the following occur: No concerns reported THRIVE Score: 2 BONNIE-7 AMB Questionnaire BONNIE-7 Date BONNIE - 7 assessed: 12/28/24 Source: Developed by Drs. Coy Vidal, Page London, Petar Barber and colleagues, with an educational yesika from [email or web address]. Review of Systems Const Denies body aches, Denies chills, Denies fever(s), Denies headache(s) and Denies poor appetite Eyes Reports no additional complaints ENT Denies dizziness and Denies headache(s) Card Denies chest pain, Denies lightheadedness and Denies dyspnea Resp Denies cough and Denies dyspnea GI Denies diarrhea, Denies nausea and Denies vomiting Reports no additional complaints Musc Reports no additional complaints and Denies abnormal gait Skin/Breast Reports system reviewed and no additional complaints, except as documented Neuro Denies abnormal gait, Denies dizziness and Denies headache(s) Psych Reports no additional complaints Physical exam (Primary Care) Vital Signs: Last Vital Signs Temp 97.3 F 04/04/25 13:57 Pulse 73 04/04/25 13:57 BP 130/60 04/04/25 13:57 Pulse Ox 96 04/04/25 13:57 Oxygen Delivery Method Room Air 04/04/25 13:57 BMI result Body Mass Index 32.5 Tobacco/Smoking Status: Tobacco use Status Tobacco use date assessed 04/04/25 04/04/25 14:02 Patient Tobacco Use Status Former Tobacco user 04/04/25 14:02 Tobacco use type Cigarette 04/04/25 14:02 e-Cigarette/Vaping Use Currently Using 04/04/25 14:02 Thrive Assessment: Date of Thrive Assessment Date Thrive assessed 12/28/24 04/04/25 14:02 Currently or been in a relationship where the following occur: No concerns reported Const General: cooperative, healthy appearing, comfortable and no acute distress Orientation/consciousness: patient oriented x3 HENMT Head: Yes normocephalic Ears: hearing grossly normal bilaterally General nose exam: Normal external nose present Eyes General: appearance normal, both eyes and all related structures Conjunctivae: conjunctivae normal Neck Neck: Yes full ROM and Yes no lymphadenopathy Resp Effort & Inspection: normal respiratory effort Auscultation: clear to auscultation bilaterally, no crackles, no rales, no rhonchi and no wheezes Cardio Rate: regular rate Rhythm: regular rhythm Skin General skin exam: no rashes or lesions noted Neuro General: patient oriented x3 Gait exam (Neuro): Normal gait present Extrem General: Yes normal to inspection, Yes full ROM and No edema Psych Affect: normal affect Attitude: cooperative Insight: Good insight present (Psych) Judgement: Good judgement present (Psych) Coding Level of Care Code Est Pt Level 3 (07941) Diagnoses Class 1 obesity due to excess calories without serious comorbidity with body mass index (BMI) of 32.0 to 32.9 in adult E66.811; E66.09; Z68.32 Obesity type: due to excess calories Serious obesity comorbidity presence: without serious comorbidity Mild intermittent asthma without complication J45.20 Asthma severity: mild Asthma persistence: intermittent Asthma complication type: uncomplicated Mild episode of recurrent major depressive disorder F33.0 Depression Type: major depressive disorder Major depression recurrence: recurrent Active/Remission status: currently active Major depression episode severity: mild Arthritis of both shoulders M19.011; M19.012 Hypercholesterolemia E78.00 Spider veins of both lower extremities I83.93 Heroin use disorder, mild F11.10 Assessment & Plan Assessment & Plan (1) Class 1 obesity with body mass index (BMI) of 32.0 to 32.9 in adult: Code(s): E66.9 - Obesity, unspecified; Z68.32 - Body mass index [BMI] 32.0-32.9, adult Category: Medical Qualifiers: Obesity type: due to excess calories Serious obesity comorbidity presence: without serious comorbidity Qualified Code(s): E66.811 - Obesity, class 1; E66.09 - Other obesity due to excess calories; Z68.32 - Body mass index [BMI] 32.0-32.9, adult Plan: Healthy diet and regular exercise is encouraged. (2) Asthma: Code(s): J45.909 - Unspecified asthma, uncomplicated Category: Medical Qualifiers: Asthma severity: mild Asthma persistence: intermittent Asthma complication type: uncomplicated Qualified Code(s): J45.20 - Mild intermittent asthma, uncomplicated Plan: Asthma currently controlled on present medications. Continue on albuterol as needed.? Avoid triggers such as allergies. (3) Depression: Code(s): F32.A - Depression, unspecified Category: Medical Qualifiers: Depression Type: major depressive disorder Major depression recurrence: recurrent Active/Remission status: currently active Major depression episode severity: mild Qualified Code(s): F33.0 - Major depressive disorder, recurrent, mild (4) Arthritis of both shoulders: Code(s): M19.011 - Primary osteoarthritis, right shoulder; M19.012 - Primary osteoarthritis, left shoulder Category: Medical Plan: Patient having severe pain in both shoulders. X-ray showing osteoarthritis of bilateral shoulders. Referral was placed to orthopedics today for further evaluation and treatment (5) Hypercholesterolemia: Code(s): E78.00 - Pure hypercholesterolemia, unspecified Category: Medical Plan: Avoid foods that are high in cholesterol such as red meat, fried foods, eggs and baked goods. Triglyceride goal of less than 150 and LDL goal of less than 130. Not currently on medical management. Last LDL 113 within goal (6) Spider veins of both lower extremities: Code(s): I83.93 - Asymptomatic varicose veins of bilateral lower extremities Category: Medical Plan: Recommended use of compression stockings, elevation when possible and activity as tolerated. Prescription for compression stockings was faxed to pharmacy today (7) Heroin use disorder, mild: Comment: without use since November - on Methadone in [facility] Code(s): F11.10 - Opioid abuse, uncomplicated Category: Medical Plan: Patient reports living in a jail house at this time and feels she has good support. She is currently on methadone and is on take on bottles is working on tapering her dose down. She will continue to follow up with methadone Clinic and has been without substance for 4 months. Plan The patient will be referred to orthopedics for further evaluation and management of shoulder arthritis, including potential options such as injections or pain management strategies. Compression stockings will be prescribed to manage spider veins, and the patient is advised to engage in regular exercise and elevate her legs to prevent fluid pooling. A mammogram referral has been made to address preventative care needs, and the patient is encouraged to follow through with the screening. The patient is advised to continue her current counseling and treatment for depression and substance use disorder, with regular follow-ups to monitor her progress. This note was constructed using voice recognition software. While every effort has been made to ensure accuracy and process validation engineer, still areas may have been included sometimes these areas may affect the content or meeting of the given symptoms. Total time spent caring for the patient today was 30 minutes. This includes time spent before the visit reviewing the chart, time spent during the visit, and time spent after the visit and documentation. Patient was informed and verbally consented to the use of an ambient scribe for clinic note documentation during this visit. Orders: Orders MM tomosynthesis screening BI 04/04/25 Z12.31 - Encounter for screening mammogram for malignant neoplasm of breast Referrals Orthopedics Referral M19.011 - Primary osteoarthritis, right shoulder, M19.012 - Primary osteoarthritis, left shoulder Medications: New [compression socks] As directed; 10-20 mmHg 1 ea 0RF I83.93 - Asymptomatic varicose veins of bilateral lower extremities
[2025-04-04 13:57] VITALS: BP 130/60; PULSE 73; TEMP 36.3; O2SAT 96; BMI 32.5
== END 2025-04-04 14:41 | disposition home or self-care (01) ==
LOC: HO.HMCH 13:18
PROVIDERS: PCP Internal Medicine
DX: J45.20 Mild intermittent asthma, uncomplicated (principal); E66.811 Obesity, class 1; Z68.32 Body mass index [BMI] 32.0-32.9, adult; F11.10 Opioid abuse, uncomplicated; F33.0 Major depressive disorder, recurrent, mild; M19.011 Primary osteoarthritis, right shoulder; M19.012 Primary osteoarthritis, left shoulder; E78.00 Pure hypercholesterolemia, unspecified; I83.93 Asymptomatic varicose veins of bilateral lower extremities

== ENCOUNTER → 2025-04-04 13:16 | Outpatient (BNVA) | payer OTHER, SELFPAY | PROVIDERS: PCP Internal Medicine | DX: E66.811 Obesity, class 1 (principal); E66.09 Other obesity due to excess calories; F11.20 Opioid dependence, uncomplicated; M19.012 Primary osteoarthritis, left shoulder; M19.011 Primary osteoarthritis, right shoulder; J45.20 Mild intermittent asthma, uncomplicated; F33.0 Major depressive disorder, recurrent, mild; E78.00 Pure hypercholesterolemia, unspecified; I83.93 Asymptomatic varicose veins of bilateral lower extremities; Z68.32 Body mass index [BMI] 32.0-32.9, adult | CPT/HCPCS: 99212 ==

== ENCOUNTER 2025-04-26 11:56 | Outpatient (REF) | payer OTHER, SELFPAY | END 2025-04-26 11:57 | disposition home or self-care (01) | LOC: HO.MAMMO 11:56 | DX: Z12.31 Encounter for screening mammogram for malignant neoplasm of breast (principal) | CPT/HCPCS: 77063; 77067 ==

== ENCOUNTER → 2025-04-26 12:00 | Outpatient (BNV) | payer OTHER, SELFPAY | PROVIDERS: Visit Provider Internal Medicine | DX: Z12.31 Encounter for screening mammogram for malignant neoplasm of breast (principal) | CPT/HCPCS: 77063; 77067 ==

== ENCOUNTER 2025-06-02 10:17 | Outpatient (REF) | payer OTHER, SELFPAY ==
--- NOTE | ~2025-06-02 | XR_ITS ---
EXAMINATION: XR KNEE, LEFT CLINICAL INFORMATION: M25.362 - Other instability, left knee COMPARISON: None available. TECHNIQUE: AP and lateral views of the left knee. FINDINGS: Joint space narrowing involving mostly the medial compartment. No acute cortical disruption or malalignment. There is a moderate volume suprapatellar bursa joint effusion. No lytic or blastic lesions. No subcutaneous emphysema. XR/XR knee LT 2V IMPRESSION: Bicompartmental osteoporosis/osteoarthritis, involving mostly the medial compartment. Suprapatellar bursa joint effusion, moderate volume. Electronically signed by: Jim Galvin MD 06/02/2025 01:02 PM EDT
== END 2025-06-02 10:18 | disposition home or self-care (01) ==
LOC: HO.HMGCX 10:17
PROVIDERS: Visit Provider Internal Medicine
DX: M25.362 Other instability, left knee (principal); Z91.81 History of falling
CPT/HCPCS: 73560; 99212

== ENCOUNTER 2025-06-02 10:17 | Outpatient (AMB) | payer OTHER, SELFPAY ==
[2025-06-02 10:48] VITALS: BP 106/60; PULSE 80; TEMP 36.7; O2SAT 96; BMI 33.9
--- NOTE | 2025-06-02 10:48 | AM.OFFWIN_ITS ---
Intake Vital Signs 06/02/25 10:48 Height 5 ft 5 in Weight 204 lb BMI 33.9 BP 106/60 Blood Pressure Location Lt brachial Position Sitting Pulse 80 Pulse Source Pulse Oximeter Temp 98.0 F Temp Source Oral Pulse Oximetry (%) 96 Oxygen Delivery Method Room Air Intake Visit Reasons: EP-lt knee pain from several falls Intake Note: presents with left knee pain and swelling after mulitple falls Patient Tobacco Use Status: Former Tobacco user Allergies ibuprofen (IBUPROFEN) Allergy (Intermediate, Verified 06/02/25 10:50) HIVES amoxicillin (AMOXICILLIN) Allergy (Unknown, Verified 06/02/25 10:50) HIVES, anaphylaxis aspirin (ASPIRIN) Allergy (Unknown, Verified 06/02/25 10:50) HIVES, anaphylaxis diphenhydramine (From BENADRYL) Allergy (Unknown, Verified 06/02/25 10:50) HIVES penicillin V Allergy (Unknown, Verified 06/02/25 10:50) anaphylaxis Penicillins (PENICILLINS) Allergy (Unknown, Verified 06/02/25 10:50) HIVES pseudoephedrine (From SUDAFED) Allergy (Unknown, Verified 06/02/25 10:50) HIVES Benadryl Allergy (Unknown, Uncoded 04/04/25 14:18) hives Peanuts Allergy (Unknown, Uncoded 04/04/25 14:18) anaphylaxis Shellfish Allergy (Unknown, Uncoded 04/04/25 14:18) anaphylaxis Medication List - Last Reconciled 06/02/25 by Shira Smith MD albuterol sulfate 90 mcg/actuation 2 puffs PO Q6H PRN [compression socks As directed; 10-20 mmHg] epinephrine (EpiPen 2-Иван) 0.3 mg (0.3 mL) IM Q4H PRN methadone 90 mg PO Q6H Do you need a note to return to daycare/school/sports/work: Yes (needs a note stating she was seen today) HPI EP-lt knee pain from several falls HPI Details Chief Complaint Left knee pain and instability for two weeks. History of Present Illness The patient is a 49-year-old female presenting with left knee issues. Left Knee Pain and Instability: - The patient reports experiencing pain and instability in the left knee. - Symptoms began approximately two weeks ago. - Incidents of falling, occurring four t imes over the past two weeks, were noted as a result of knee instability. - Reports of knee clicking sounds upon m ovement. - Experiences significant pain upon appl ication of pressure above and below the patella. - No prior imaging, including x-ray, has been performed. Medications: - Tylenol: For pain management as patien karime is allergic to ibuprofen. Problem List - Left knee pain and instability - recurrent falls Patient Instructions - Take Tylenol for pain management. - Proceed next door for x-rays of the le ft knee. - Follow up with orthopedic appointment as scheduled for further evaluation. - Use the knee splint to provide stabili ty and prevent falls. Review of Systems - General: No fever no chills - Neurological: No headaches no dizziness - Ear nose throat: No sore throat no hearing difficulty no ear pain - Cardiovascular: No syncope, no chest pain, no palpitations - Gastrointestinal: No nausea vomiting or diarrhea Physical Exam General: No acute distress HEENT: No acute findings Neck: Supple Respiratory system: Able to talk in full sentences Gastrointestinal: No pain Extremities: Left knee pain above and below the patella, limited ROM due to pain SENIOR UX DEVELOPER: Alert awake oriented x3 motor sensory intact Skin: Normal turgor Radiology report came back at 01:27 Bicompartmental osteoporosis/osteoarthritis, involving mostly the medial compartment. Suprapatellar bursa joint effusion, moderate volume. She will be seeing orthopedic referral is in [facility] Medical History Heroin use disorder, mild Bilateral leg edema Class 1 obesity with body mass index (BMI) of 32.0 to 32.9 in adult Right foot pain Cellulitis of right foot COPD (chronic obstructive pulmonary disease) Cardiac arrhythmia Asthma Surgical History No history of previous surgery Family History Mother Tumor of lung Chronic asthma Father No problems noted. Sister HIV (human immunodeficiency virus infection) Family/Other Substance use disorder Mental health disorder Social History Housing: Apartment Alcohol intake: never Patient Tobacco Use Status: Former Tobacco user Tobacco use type: Cigarette Cigarette Packs Per Day: 0.5 Cigarettes Per Day: 3 e-Cigarette/Vaping Use: Currently Using Second Hand Smoke Exposure: Yes Substance Use Type: Heroin service: No Current occupational status: unemployed Cognitive needs: No Hearing needs: No Vision needs: Yes Physical Exam Vital Signs: Last Vital Signs Temp 98.0 F 06/02/25 10:48 Pulse 80 06/02/25 10:48 BP 106/60 06/02/25 10:48 Pulse Ox 96 06/02/25 10:48 Oxygen Delivery Method Room Air 06/02/25 10:48 BMI result Body Mass Index 33.9 Assessment & Plan Assessment & Plan (1) Other instability, left knee: Code(s): M25.362 - Other instability, left knee Plan Chief Complaint Left knee pain and instability for two weeks. History of Present Illness The patient is a 49-year-old female presenting with left knee issues. Left Knee Pain and Instability: - The patient reports experiencing pain and instability in the left knee. - Symptoms began approximately two weeks ago. - Incidents of falling, occurring four times over the past two weeks, were noted as a result of knee instability. - Reports of knee clicking sounds upon movement. - Experiences significant pain upon application of pressure above and below the patella. - No prior imaging, including x-ray, has been performed. Medications: - Tylenol: For pain management as patient is allergic to ibuprofen. Problem List - Left knee pain and instability - recurrent falls Patient Instructions - Take Tylenol for pain management. - Proceed next door for x-rays of the left knee. - Follow up with orthopedic appointment as scheduled for further evaluation. - Use the knee splint to provide stability and prevent falls. Radiology report came back at 01:27 Bicompartmental osteoporosis/osteoarthritis, involving mostly the medial compartment. Suprapatellar bursa joint effusion, moderate volume. She will be seeing orthopedic referral is in Orders: Orders XR knee LT 2V Today M25.362 - Other instability, left knee Referrals Orthopedics Referral M25.362 - Other instability, left knee Coding Level of Care Code Est Pt Level 4 (26473) Diagnoses Other instability, left knee M25.362 Time Spent (min) 30 Comment Follow-up on radiology report
== END 2025-06-02 12:25 | disposition home or self-care (01) ==
PROVIDERS: Visit Provider Internal Medicine
DX: M25.362 Other instability, left knee (principal)

== ENCOUNTER → 2025-06-02 11:18 | Outpatient (BNV) | payer OTHER, SELFPAY | PROVIDERS: Visit Provider Radiology Diagnostic Radiology | DX: M25.462 Effusion, left knee (principal) | CPT/HCPCS: 73560 ==

== ENCOUNTER 2025-06-12 10:45 | Emergency (ER) | payer OTHER, SELFPAY ==
--- NOTE | ~2025-06-12 | US_ITS ---
EXAMINATION: US TRIPLEX LOWER EXTREMITY, BILATERAL CLINICAL INFORMATION: Pain, lower extremities. COMPARISON: None available. TECHNIQUE: Color-flow triplex imaging with spectral analysis and compression Doppler were performed on the bilateral lower extremities. FINDINGS: Respiratory variation, normal compression and augmented flow are demonstrated throughout the interrogated common femoral vein, superficial femoral vein, profunda femoral vein, popliteal vein and midcalf peroneal and posterior tibial venous segments, bilaterally. There is no Khoury's cyst. US/US venous duplex LE BI IMPRESSION: No acute deep venous thrombosis interrogated veins of both lower extremities. Negative for DVT. Electronically signed by: Jim Galvin MD 06/12/2025 12:51 PM EDT
[2025-06-12 10:58] VITALS: BP 122/67; PULSE 77; RESP 16; TEMP 36.8; O2SAT 100; BMI 33.9
--- NOTE | 2025-06-12 11:11 | ED.GENADULT ---
HPI - General Adult General Chief complaint: Extremity Injury, Lower Stated complaint: SWELLING LEFT LEG Time Seen by Provider: 06/12/25 11:02 Source: patient Mode of arrival: ambulatory Limitations: no limitations History of Present Illness ED Provider: DR. Diallo HPI narrative: 49-year-old female came in for evaluation of bilateral lower extremities swelling and pain left more than right, patient otherwise declined shortness of breath, no exertional dyspnea, no paroxysmal nocturnal dyspnea, no orthopnea, patient do not drink or use drugs, no liver issues, no dysuria, no frequency urination, no kidney issues. 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 Otherwise no recent travel, no shortness of breath, no chest pain. Related Data Home Medications ?Medication ?Instructions ?Recorded ?Confirmed methadone 5 mg/5 mL oral solution 90 mg PO Q6H 06/02/25 06/02/25 Previous Rx's ?Medication ?Instructions ?Recorded epinephrine 0.3 mg/0.3 mL 0.3 mg (0.3 mL) IM Q4H PRN 01/01/22 injection, auto-injector (EpiPen hypersensitivity reaction #2 ea 2-Иван) albuterol sulfate 90 mcg/actuation 2 puff PO Q6H PRN bronchospasm 11/13/22 aerosol inhaler #8.5 grams compression socks #1 ea 04/04/25 Allergies Allergy/AdvReac Type Severity Reaction Status Date / Time ibuprofen (IBUPROFEN) Allergy Intermediate HIVES Verified 06/12/25 11:00 amoxicillin (AMOXICILLIN) Allergy Unknown HIVES, Verified 06/12/25 11:00 anaphylaxis aspirin (ASPIRIN) Allergy Unknown HIVES, Verified 06/12/25 11:00 anaphylaxis diphenhydramine (From Allergy Unknown HIVES Verified 06/12/25 11:00 BENADRYL) penicillin V Allergy Unknown anaphylaxis Verified 06/12/25 11:00 Penicillins (PENICILLINS) Allergy Unknown HIVES Verified 06/12/25 11:00 pseudoephedrine (From Allergy Unknown HIVES Verified 06/12/25 11:00 SUDAFED) Benadryl Allergy Unknown hives Uncoded 04/04/25 14:18 Peanuts Allergy Unknown anaphylaxis Uncoded 04/04/25 14:18 Shellfish Allergy Unknown anaphylaxis Uncoded 04/04/25 14:18 Review of Systems Review of Systems: All other systems are reviewed and are negative Constitutional: Reports as per HPI and Reports no additional constitutional complaints Eyes: Reports as per HPI and Reports no additional eye complaints Reports system reviewed and no additional complaints, except as documented Cardiovascular: Reports as per HPI and Reports no additional cardiovascular complaints Respiratory: Reports as per HPI and Reports no additional respiratory complaints Gastrointestinal: Reports as per HPI and Reports no additional gastrointestinal complaints Genitourinary: Reports no additional female genitourinary complaints Musculoskeletal: Reports no additional musculoskeletal complaints Skin/Breast: Reports system reviewed and no additional complaints, except as docu Psychiatric: Reports no additional psychiatric complaints Endocrine: Reports no additional endocrine complaints Hematologic/Lymphatic: Reports no additional hematologic/lymphatic complaints Allergic/Immunologic: Reports no additional allergic/immunologic complaints Reports system reviewed and no additional complaints, except as documented and Reports Abnormal speech present [facility] Past Medical History Medical History Heroin use disorder, mild Bilateral leg edema Class 1 obesity with body mass index (BMI) of 32.0 to 32.9 in adult Right foot pain Cellulitis of right foot COPD (chronic obstructive pulmonary disease) Cardiac arrhythmia Asthma Surgical History No history of previous surgery Family History Family History Mother Tumor of lung Chronic asthma Father No problems noted. Sister HIV (human immunodeficiency virus infection) Family/Other Substance use disorder Mental health disorder Social History Social History Housing: Apartment Unable to assess alcohol history related to: Unknown Alcohol intake: never Patient Tobacco Use Status: Former Tobacco user Tobacco use type: Cigarette Cigarette Packs Per Day: 0.5 Cigarettes Per Day: 3 Smoked in Last 30 Days: Yes e-Cigarette/Vaping Use: Currently Using Second Hand Smoke Exposure: Yes Substance Use Type: Marijuana and Opiates Substance Use Frequency: Chronic Longstanding Last Used Substance: Unknown Any prior treatment program specific to substance use: Yes Advance Directives: No Advance Directives Information Provided: Yes Patient : No service: No Current occupational status: unemployed Cognitive needs: No Hearing needs: No Vision needs: Yes Physical Exam ED Vital Signs: Vital Signs - 24 hr 06/12/25 10:58 Temperature 98.2 F Pulse Rate 77 Respiratory Rate 16 Blood Pressure 122/67 Pulse Oximetry 100 Oxygen Delivery Method Room Air BMI result Body Mass Index 33.9 Vital signs have been reviewed and appear to be correct. Blood pressure elevated. Heart rate normal. Respiratory rate normal. Temperature normal. Oxygen saturation normal. Appearance: Alert. Oriented X3. No acute distress. Head: Normal external exam. Normocephalic. Atraumatic. No Padron signs noted. No raccoon eyes noted Eyes: PERRLA. EOMI. Conjunctiva and sclera normal. Eyelids normal. ENT: TM's Normal. Pharynx normal. Uvula midline. Moist mucous membranes. No trismus noted. No drooling noted. No muffled voice noted. Neck: Normal inspection. Neck supple. FROM. No adenopathy. Thyroid Normal. No meningeal signs. No neck mass noted. CVS: Normal heart rate and rhythm. Heart sound normal. No murmurs noted. Pulses normal throughout. Respiratory: No respiratory distress. Painless inspiration. Breath sounds normal. No wheezes/rales/rhonchi noted. Chest nontender. No accessory muscle usage noted or decreased air movement noted. Abdomen: Soft and nontender. Bowel sounds normal in all 4 quadrants. No distention noted. No organomegaly noted. No visible injury noted. Back: No CVA tenderness. Full range of motion noted. Skin: Skin warm and dry. Normal skin color. Normal skin turgor. No rashes/lesions/lacerations noted. Extremities: +1 pitting bilateral lower extremity edema. Extremities exhibit normal range of motion. Extremities nontender. Neuro: Oriented X 3. Cranial nerve exam: II-XII are grossly intact No motor deficit. No sensory deficit. Reflexes normal. Course Reevaluation(s) Reevaluation #1: Bilateral lower extremity edema, no SOB, no chest pain, no indication for CHF/renal disease, no DVT, normal LFTs. Will discharge to follow-up with PCP patient was instructed to started to ambulate to help with the swelling. And bilateral lower extremity elevation, Otherwise no acute intervention is needed today. Time: 13:14 Medications Administered Discontinued Medications Generic Name Dose Route Start Last Admin Trade Name Freq PRN Reason Stop Dose Admin Sodium Chloride 1,000 mls @ 999 mls/hr 06/12/25 11:09 06/12/25 11:34 Ns IV 06/12/25 12:09 999 mls/hr .Q1H1M ONE Administration Medical Decision Making Differential Diagnosis Differential Diagnoses: The differential diagnosis associated with the presentation includes (DVT, CHF, JONATHAN, liver disease, hypoproteinemia, electrolyte derangement, severe anemia.) Admission/Observation Consideration of admission/observation: Escalation of care including admission/observation considered Lab Data MDM Lab Attestation statement: I reviewed the patient's lab results. 06/12/25 11:31 06/12/25 11:31 Labs: Lab Results 06/12/25 Range/Units 11:31 WBC 5.2 (4.8-10.8) X10*3/uL RBC 4.53 (4.20-5.50) X10*6/uL Hgb 11.9 L (12.0-16.0) g/dl Hct 36.6 L (37.0-47.0) % MCV 80.8 (80.0-98.0) fL MCH 26.3 L (27.0-33.0) pg MCHC 32.5 (31.0-35.0) g/dl RDW 12.8 (11.0-16.0) % Plt Count 230 (160-400) X10*3/uL MPV 9.1 L (9.4-12.3) fL Immature Gran % (Auto) 0.2 (0.0-0.4) % Neut % (Auto) 59.7 (45-73) % Lymph % (Auto) 30.8 (20-40) % Elmore % (Auto) 6.6 (2-11) % Eos % (Auto) 2.5 (0-4) % Baso % (Auto) 0.2 (0-2) % Lymph # (Auto) 1.6 (1.2-4.9) X10*3/uL Elmore # (Auto) 0.3 (0.1-1.2) X10*3/uL Eos # (Auto) 0.1 (0.0-0.4) X10*3/uL Baso # (Auto) 0.0 (0.0-0.2) X10*3/uL Abs Immat Gran (auto) 0.01 (0.00-0.03) X10*3/uL Absolute Neuts (auto) 3.1 (2.0-8.3) x10*3/uL Absolute Nucleated RBC 0.000 (0.0-0.012) X10*3/uL Nucleated RBC % (auto) 0.0 (0.0-0.2) /100WBC Sodium 141 (135-145) mmol/L Potassium 4.4 (3.3-5.1) mmol/L Chloride 105 (96-108) mmol/L Carbon Dioxide 27 (22-29) mmol/L Anion Gap 13 (12-20) BUN 12 (9-16) mg/dL Creatinine 0.71 (0.5-1.4) mg/dL Estim Creat Clear Calc 106.5 Estimated GFR > 60 Random Glucose 93 (60-115) mg/dL Calcium 9.1 (8.4-10.2) mg/dL Total Bilirubin 0.2 (0.0-1.0) mg/dL Direct Bilirubin < 0.2 (0.0-0.5) mg/dL AST 29 (5-31) U/L ALT 23 (0-31) U/L Alkaline Phosphatase 95 (39-117) U/L Troponin I High Sens 2.7 (<3.5-17.0) ng/L B-Natriuretic Peptide 62 (<100) pg/mL Total Protein 6.9 (6.5-8.0) g/dL Albumin 4.1 (3.5-5.0) g/dL Lipase 9 (8-78) U/L Independent Interpretation I performed an independent interpretation of an: Ultrasound (Bilateral lower extremity: No DVT in both lower extremity.) Radiology Impression Discussion of test interpretation with radiology: I have reviewed the radiologist's reading. Discharge Plan Discharge Clinical Impression: Bilateral leg edema Patient Disposition: Home, Self-Care Instructions: Leg Edema (ED) Additional Instructions: Do not sit for long time and ambulate intermittently throughout day, elevate your both legs Prescriptions: No Action epinephrine [EpiPen 2-Иван] 0.3 mg/0.3 mL auto-injector 0.3 mg IM Q4H PRN (Reason: hypersensitivity reaction) Qty: 2 3RF albuterol sulfate 90 mcg/actuation HFA aerosol inhaler 2 puff PO Q6H PRN (Reason: bronchospasm) Qty: 8.5 8RF methadone 5 mg/5 mL solution 90 mg PO Q6H (DME) compression socks See Rx Instructions .Route .MEDSUPPLY Qty: 1 0RF Rx Instructions: As directed; 10-20 mmHg Referrals: Cammie Parks PA-C [Primary Care Provider, Internal Medicine] Print Language: Turkish
[2025-06-12 11:36] LABS: MANUAL DIFF FLAG NO
[2025-06-12 11:39] LABS: Hematocrit 36.6 % (37.0-47.0); Hemoglobin 11.9 g/dl (12.0-16.0); Imm Gran Abs Auto 0.01 X10*3/uL (0.00-0.03); Imm Gran Pct Auto 0.2 % (0.0-0.4); Lymphocytes Absolute Auto 1.6 X10*3/uL (1.2-4.9); Mean Corpuscular HGB Conc 32.5 g/dl (31.0-35.0); Mean Corpuscular Hemoglobin 26.3 pg (27.0-33.0); Mean Corpuscular Volume 80.8 fL (80.0-98.0); NRBC Abs Auto 0.000 X10*3/uL (0.0-0.012); NRBC Pct Auto 0.0 /100WBC (0.0-0.2); Platelet Count 230 X10*3/uL (160-400); Red Blood Count 4.53 X10*6/uL (4.20-5.50); White Blood Count 5.2 X10*3/uL (4.8-10.8)
[2025-06-12 11:54] LABS: Alanine Aminotransferase 23 U/L (0-31); Albumin Level 4.1 g/dL (3.5-5.0); Alkaline Phosphatase 95 U/L (39-117); Anion Gap 13 (12-20); Aspartate Amino Transferase 29 U/L (5-31); Blood Urea Nitrogen 12 mg/dL (9-16); Calcium 9.1 mg/dL (8.4-10.2); Carbon Dioxide 27 mmol/L (22-29); Chloride 105 mmol/L (96-108); Creatinine Clr Calc Pharmacy 106.5; Estimated Glomerular Filt Rate > 60; Lipase 9 U/L (8-78); Potassium 4.4 mmol/L (3.3-5.1); Sodium 141 mmol/L (135-145); Total Protein 6.9 g/dL (6.5-8.0)
[2025-06-12 11:58] LABS: B Type Natriuretic Peptide 62 pg/mL (<100)
[2025-06-12 12:01] LABS: Troponin-I High Sensitivity 2.7 ng/L (<3.5-17.0)
--- NOTE | 2025-06-12 12:27 | PC.NURSE ---
Ultrasound at bedside for pt exam
[2025-06-12 13:28] VITALS: BP 126/62; PULSE 72; RESP 16; TEMP 36.6; O2SAT 97
[2025-06-12 13:29] VITALS: BP 126/62; PULSE 72; RESP 16; TEMP 36.6; O2SAT 97
== END 2025-06-12 13:29 | disposition home or self-care (01) ==
PROVIDERS: Emergency Provider Emergency Medicine
DX: R60.0 Localized edema (principal); R11.0 Nausea; Z79.899 Other long term (current) drug therapy; Z87.891 Personal history of nicotine dependence
CPT/HCPCS: 36415; 80048; 80076; 83690; 83880; 84484; 85025; 93970; 96360; 96361; 99284

== ENCOUNTER → 2025-06-12 11:11 | Outpatient (BNV) | payer OTHER, SELFPAY | PROVIDERS: Emergency Provider Emergency Medicine; Visit Provider Radiology Diagnostic Radiology | DX: M25.562 Pain in left knee (principal) | CPT/HCPCS: 93970 ==

== ENCOUNTER 2025-08-04 13:18 | Outpatient (REF) | payer OTHER, SELFPAY | END 2025-08-04 13:19 | disposition home or self-care (01) | LOC: HO.HOSX 13:18 | PROVIDERS: Visit Provider Physician Assistant | DX: Z13.89 Encounter for screening for other disorder (principal) ==

== ENCOUNTER 2025-08-17 08:43 | Outpatient (REF) | payer OTHER, SELFPAY ==
--- OUTSIDE RECORDS SUMMARY | 2025-08-18 01:05 | XMS_ITS | Continuity of Care Document ---
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 [address] [facility], [address], [place], [place], [id number] , [place]. tel:[phone] Offic Cons New/estab Mod 40 Mi- CT & MA [facility] [address], [address] [place] [address] [address], [id number], [place] tel:[phone] R - [place] Pain in right lower legPain in left lower legPain in right legPain in left legRestless legs syndromeVenous insufficiency (chronic) (peripheral)Pru ritus, unspecifiedCram p and spasmLocalized edema 5 Michael DC RVT, RY Cespedes. [address] [facility] [address], [facility] [place], [id number] , [place]. tel:[phone] Referring Provider: Tyree Sadler DO, [address] [facility] [place], [address]. tel:[phone] [facility], [address] [facility] [address], [place], [id number], tel:[phone] CVR - [place] Varicose veins of bilateral lower extremities with pain 5 Michael DC RVT, RY Cespedes. [address] [address], [place], [id number] , [place]. tel:[phone] Referring Provider: Tyree Sadler DO, [address] [facility] [place], [address]. tel:[phone] Family History Family Member Type Diagnosis Age At Onset No Information Payers Payer name Insurance type Covered republican ID Mekhi kan(s) [facility] [id number] Social History Type Description Quantity Date Captured [...] 35.0-35.9, adult Lifestyle education Related to B trip mass index (BMI) 35.0-35.9, adult Patient education [...]
== END 2025-08-17 08:44 | disposition home or self-care (01) ==
LOC: HO.HOSX 08:43
PROVIDERS: Visit Provider Physician Assistant
DX: Z13.89 Encounter for screening for other disorder (principal)

== ENCOUNTER 2025-08-18 14:15 | Outpatient (REF) | payer OTHER, SELFPAY ==
--- OUTSIDE RECORDS SUMMARY | 2025-08-18 00:05 | XMS_ITS | Continuity of Care Document ---
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 Name Role Phone Lynette Cadena MD Unavailable Unavailable Allergies, Adverse Reactions, Alerts Substance Reaction Status Criticality PENICILLIN Active No Information ibuprofen Active No Information aspirin Active No Information amoxicillin Active No Information PSEUDOEPHEDRINE HCL Active No Infor mation Procedures Procedure Date Offic Cons New/estab Mod 40 Mi- CT & MA Duplex Scan-extrem Veins; Comp- CT & MA Advance Directives Directive Yes / No Effective Date File Name No Information Encounters Encounter Description Practice Location Reason(s) For Visit Diagnoses Date Provider Providers Copied on Encounter [facility] [address], [address] [place] [address] Dr Gamino [address] [place], [id number], [place] tel:[phone] [facility] No Information Surinder Ojeda. [address] [facility], [address], [place], [place], [id number] , [place]. tel:[phone] Offic Cons New/estab Mod 40 Mi- CT & [place] [facility] [address], [address] [place] [address] [address], [id number], [place] tel:[phone] R [place] Pain in right lower legPain in left lower legPain in right legPain in left legRestless legs syndromeVenous insufficiency (chronic) (peripheral)Pru ritus, unspecifiedCram p and spasmLocalized edema 5 Michael DC RVT, RY Cespedes. [address] [facility] [address], [facility] [place] [place], [id number] , [place]. tel:[phone] Referring Provider: Tyree Sadler DO, [address] [facility] [place], [address]. tel:[phone] [facility], [address] [facility] [address], [place], [id number], tel:[phone] [facility] [place] Varicose veins of bilateral lower extremities with pain 5 Michael DC RVT, RY Cespedes. [address] [address], [place], [id number] , [place]. tel:[phone] Referring Provider: Tyree Sadler DO, [address] [facility] [place], [address]. tel:[phone] Family History Family Member Type Diagnosis Age At Onset No Information Payers Payer name Insurance type Covered green party ID Mekhi kan(s) [facility] [id number] Social History Type Description Quantity Date Captured Comments Sex Female Smoking Status No Information Chief Complaint And Reason For Visit No Information Reason For Referral Reason For Referral No Information Plan Of Treatment Date Type Action Status Goal Diet education completed Referral Ordered: Weight management: Referral to physician timeframe: 3 Months (related to Body mass index (BMI) 35.0-35.9, adult) ordered Appointment Rosa Valencia BOOKED Appointment Rosa Valencia BOOKED Appointment Rosa Valencia BOOKED Appointment Rosa Valencia BOOKED Appointment Rosa Valencia BOOKED Appointment Rosa Valencia BOOKED Appointment Rosa Valencia BOOKED Appointment Rosa Valencia BOOKED Appointment Rosa Valencia BOOKED History Of Present Illness Encounter Date Complaint History Of Prese nt Illness No Information Functional Status Date Functional Assessmen t No Information Instructions Date Instruction Additional Infor basilioion Giving Encouragement to exercise Related to Body mass index (BMI) 35.0-35.9, adult Lifestyle education Related to B tirp mass index (BMI) 35.0-35.9, adult Patient education booklet given Related to Pain in right lower leg Pre and post instruc tions reviewed and provided Related to Pain in right lower leg Diet education Related to Body mass index (BMI) 35.0-35.9, adult Assessments Type Assessment Date No Information Patient Care Teams Name Effective Dates (start - stop) Status Members No Information
== END 2025-08-18 14:16 | disposition home or self-care (01) ==
LOC: HO.HOSX 14:15
PROVIDERS: Visit Provider Physician Assistant
DX: Z13.89 Encounter for screening for other disorder (principal)

== ENCOUNTER 2025-09-07 08:27 | Outpatient (AMB) | payer OTHER, SELFPAY ==
[2025-09-07 08:30] VITALS: BP 118/70; PULSE 88; TEMP 36.7; O2SAT 99; BMI 37.0
--- NOTE | 2025-09-07 08:30 | MHC.PC.OV ---
Vital Signs 09/07/25 08:30 Height 5 ft 5 in Weight 222 lb 2 oz BMI 37.0 BP 118/70 Blood Pressure Location Lt brachial Position Sitting Pulse 88 Pulse Source Pulse Oximeter Temp 98.1 F Temp Source Temporal Artery Scan Pulse Oximetry (%) 99 Oxygen Delivery Method Room Air Intake Visit Reasons: Reschedule f/u chronic conditions Intake Note: Patient is here today for DARY from Dr Smith Deaf Interpreter Required: No Insurance Clerk: Present Accompanied by: Spouse Allergies ibuprofen (IBUPROFEN) Allergy (Intermediate, Verified 09/07/25 08:40) HIVES amoxicillin (AMOXICILLIN) Allergy (Unknown, Verified 09/07/25 08:40) HIVES, anaphylaxis aspirin (ASPIRIN) Allergy (Unknown, Verified 09/07/25 08:40) HIVES, anaphylaxis diphenhydramine (From BENADRYL) Allergy (Unknown, Verified 09/07/25 08:40) HIVES penicillin V Allergy (Unknown, Verified 09/07/25 08:40) anaphylaxis Penicillins (PENICILLINS) Allergy (Unknown, Verified 09/07/25 08:40) HIVES pseudoephedrine (From SUDAFED) Allergy (Unknown, Verified 09/07/25 08:40) HIVES Benadryl Allergy (Unknown, Uncoded 09/07/25 08:40) hives Peanuts Allergy (Unknown, Uncoded 09/07/25 08:40) anaphylaxis Shellfish Allergy (Unknown, Uncoded 09/07/25 08:40) anaphylaxis Medication List - Last Reconciled 09/07/25 by Cammie Parks PA-C albuterol sulfate 90 mcg/actuation 2 puffs PO Q6H PRN [compression socks As directed; 10-20 mmHg] epinephrine (EpiPen 2-Иван) 0.3 mg (0.3 mL) IM Q4H PRN methadone 90 mg PO Q6H Tobacco use date assessed: 04/04/25 Dental Screening Dental Screen Date: 12/28/24 Did you have a dental visit in the last 12 months?: No Did you have a dental problem in the last 6 months where you did not have access to dental care?: No Was dental information given to patient?: No HPI Reschedule f/u chronic conditions HPI Details 49-year-old female with past medical history of asthma, heroin use disorder, obesity, depression last seen 04/12 coming in for follow up. At her last visit referral was placed to orthopedics for bilateral shoulder pain. Presenting for management of multiple chronic conditions and new-onset symptoms. The patient has venous insufficiency in the legs, which causes significant pain, particularly upon waking, leading the patient to sleep in a reclined position. There is a venous procedure scheduled for November 15. The patient reports new-onset abdominal pain that started this week, localized to the right upper quadrant. The pain is throbbing in nature and exacerbated by consuming soda, spicy foods, and fried foods. Asthma is poorly controlled, with daily use of an albuterol inhaler. The patient experiences shortness of breath when going up stairs, as well as nightly episodes of shortness of breath and wheezing. The patient experiences palpitations daily, which can be triggered by bending down quickly. There is a history of supraventricular tachycardia (SVT), which was diagnosed on a Holter monitor years ago. The patient has not seen a joint filler in about three years. [facility] Medical History Heroin use disorder, mild Bilateral leg edema Class 1 obesity with body mass index (BMI) of 32.0 to 32.9 in adult Right foot pain Cellulitis of right foot COPD (chronic obstructive pulmonary disease) Cardiac arrhythmia Asthma Surgical History No history of previous surgery Family History Mother Tumor of lung Chronic asthma Father No problems noted. Sister HIV (human immunodeficiency virus infection) Family/Other Substance use disorder Mental health disorder Social History Housing: Apartment Alcohol intake: never Patient Tobacco Use Status: Former Tobacco user Tobacco use type: Cigarette Cigarette Packs Per Day: 0.5 Cigarettes Per Day: 3 e-Cigarette/Vaping Use: Currently Using Second Hand Smoke Exposure: Yes Substance Use Type: Marijuana and Opiates service: No Current occupational status: unemployed Cognitive needs: No Hearing needs: No Vision needs: Yes Questionnaire PHQ-9 Over the last 2 weeks, how often have you been bothered by any of the following problems? 1. Little interest or pleasure in doing things: several days 2. Feeling down, depressed, or hopeless: several days 3. Trouble falling or staying asleep, or sleeping too much: several days 4. Feeling tired or having little energy: several days 5. Poor appetite or overeating: not at all 6. Feeling bad about yourself - or that you are a failure or have let yourself or your family down: several days 7. Trouble concentrating on things, such as reading the newspaper or watching television: several days 8. Moving or speaking so slowly that other people could have noticed. Or the opposite - being so fidgety or restless that you have been moving around a lot more than usual: not at all 9. Thoughts that you would be better off or of hurting yourself in some way: not at all Total score: 6 Depression Screening Interpretation: Positive Depression Screening Done: Yes Source: Developed by Drs. Coy Vidal, Page London, Petar Barber and colleagues, with an educational yesika from [employer]. Thrive Questionnaire Date Thrive assessed: 12/28/24 I am a: Patient What is your living situation today?: I have a steady place to live Within the past 12 months, did the food you bought not last and you didn't have the money to get more?: Sometimes True Within the past 12 months, did you worry whether your food would run out before you got money to buy more?: Sometimes True Do you have trouble paying for medicines?: No Do you have trouble getting transportation to medical appointments?: No Do you have trouble paying your heating and electricity bill?: No Do you have trouble taking care of your child, family member or friend?: No Do you have trouble with day-to-day activities such as bathing, preparing meals, shopping, managing finances, etc.?: No Are you currently unemployed and looking for a job?: No Are you interested in more education?: Yes Currently or been in a relationship where the following occur: No concerns reported THRIVE Score: 2 AUDIT C Alcohol Use Questionnaire (AUDIT-C) 1. How often do you have a drink containing alcohol?: Never 3. How often do you have six or more drinks on one occasion?: Never Total Score: 0 BONNIE-7 AMB Questionnaire BONNIE-7 Date BONNIE - 7 assessed: 12/28/24 Feeling nervous, anxious, or on edge: 3 = Nearly every day Not being able to stop or control worryin = Nearly every day Worrying too much about different things: 3 = Nearly every day Trouble relaxin = Nearly every day Being so restless that it is hard to sit still: 3 = Nearly every day Becoming easily annoyed or irritable: 3 = Nearly every day Feeling afraid as if something awful might happen: 0 = Not at all Total BONNIE-7 score (0-4 normal; 5-9 mild; 10-14 moderate; 15-21 severe): 18 Source: Developed by Drs. Coy Vidal, Page London, Petar Barber and colleagues, with an educational yesika from [employer]. Review of Systems Const Denies body aches, Denies chills, Denies fever(s), Denies headache(s) and Denies poor appetite Eyes Reports no additional complaints ENT Denies dizziness and Denies headache(s) Card Reports as per HPI, Denies chest pain, Denies syncope, Denies edema, Denies irregular heart rhythm, Denies lightheadedness, Reports palpitations and Reports dyspnea Resp Reports as per HPI, Denies cough, Reports dyspnea and Reports wheezing GI Reports abdominal pain, Denies constipation, Denies dyspepsia, Denies heartburn, Denies diarrhea, Denies nausea and Denies vomiting Reports no additional complaints Musc Reports no additional complaints and Denies abnormal gait Skin/Breast Reports system reviewed and no additional complaints, except as documented Neuro Denies abnormal gait, Denies dizziness, Denies syncope and Denies headache(s) Psych Reports no additional complaints Endo Reports palpitations Aller/Immun Reports wheezing Physical exam (Primary Care) Vital Signs: Last Vital Signs Temp 98.1 F 09/07/25 08:30 Pulse 88 09/07/25 08:30 BP 118/70 09/07/25 08:30 Pulse Ox 99 09/07/25 08:30 Oxygen Delivery Method Room Air 09/07/25 08:30 BMI result Body Mass Index 37.0 Tobacco/Smoking Status: Tobacco use Status Tobacco use date assessed 04/04/25 09/07/25 08:31 Patient Tobacco Use Status Former Tobacco user 09/07/25 08:31 Tobacco use type Cigarette 09/07/25 08:31 e-Cigarette/Vaping Use Currently Using 09/07/25 08:31 PHQ-9: PHQ-9 Score PHQ-9: Total score 6 09/07/25 10:15 Depression Screening Interpretation: Positive Thrive Assessment: Date of Thrive Assessment Date Thrive assessed 12/28/24 09/07/25 08:31 Currently or been in a relationship where the following occur: No concerns reported Const General: cooperative, healthy appearing, comfortable and no acute distress Orientation/consciousness: patient oriented x3 HENMT Head: Yes normocephalic Ears: hearing grossly normal bilaterally General nose exam: Normal external nose present Eyes General: appearance normal, both eyes and all related structures Conjunctivae: conjunctivae normal Neck Neck: Yes full ROM and Yes no lymphadenopathy Resp Effort & Inspection: normal respiratory effort Auscultation: clear to auscultation bilaterally, no crackles, no rales, no rhonchi and no wheezes Cardio Rate: regular rate Rhythm: regular rhythm GI Palpation (GI): Soft to palpation, not firm, nontender, no guarding, not rigid, no masses and No Rebound tenderness present Skin General skin exam: no rashes or lesions noted Neuro General: patient oriented x3 Gait exam (Neuro): Normal gait present Extrem General: Yes normal to inspection, Yes full ROM and No edema Psych Affect: normal affect Attitude: cooperative Insight: Good insight present (Psych) Judgement: Good judgement present (Psych) Coding Level of Care Code Est Pt Level 4 (22450) Diagnoses Class 1 obesity due to excess calories without serious comorbidity with body mass index (BMI) of 32.0 to 32.9 in adult E66.811; E66.09; Z68.32 Obesity type: due to excess calories Serious obesity comorbidity presence: without serious comorbidity Mild intermittent asthma without complication J45.20 Asthma complication type: uncomplicated Asthma persistence: intermittent Asthma severity: mild Arthritis of both shoulders M19.011; M19.012 Hypercholesterolemia E78.00 Heroin use disorder, mild F11.10 Palpitations R00.2 Postprandial RUQ pain R10.11 Spider veins of both lower extremities I83.93 Assessment & Plan Assessment & Plan (1) Class 1 obesity with body mass index (BMI) of 32.0 to 32.9 in adult: Code(s): E66.9 - Obesity, unspecified; Z68.32 - Body mass index [BMI] 32.0-32.9, adult Category: Medical Qualifiers: Obesity type: due to excess calories Serious obesity comorbidity presence: without serious comorbidity Qualified Code(s): E66.811 - Obesity, class 1; E66.09 - Other obesity due to excess calories; Z68.32 - Body mass index [BMI] 32.0-32.9, adult Plan: Healthy diet and regular exercise is encouraged. (2) Asthma: Code(s): J45.909 - Unspecified asthma, uncomplicated Category: Medical Qualifiers: Asthma complication type: uncomplicated Asthma persistence: intermittent Asthma severity: mild Qualified Code(s): J45.20 - Mild intermittent asthma, uncomplicated Plan: The patient's asthma is not well-controlled, as evidenced by daily albuterol use and nocturnal symptoms including shortness of breath and wheezing. A new prescription for Symbicort has been sent to the pharmacy, with instructions to use it twice daily, one puff in the morning and one at night. The patient was advised that the goal is to reduce albuterol use to an as-needed basis, about once or twice a week, and to report if more frequent use is necessary. (3) Arthritis of both shoulders: Code(s): M19.011 - Primary osteoarthritis, right shoulder; M19.012 - Primary osteoarthritis, left shoulder Category: Medical Plan: Shoulder pain has resolved at this time. Continue to monitor. (4) Hypercholesterolemia: Code(s): E78.00 - Pure hypercholesterolemia, unspecified Category: Medical Plan: Avoid foods that are high in cholesterol such as red meat, fried foods, eggs and baked goods. Triglyceride goal of less than 150 and LDL goal of less than 130. Not currently on medical management. Last LDL 113 within goal (5) Heroin use disorder, mild: Comment: without use since November - on Methadone in [place] [address] [place] Code(s): F11.10 - Opioid abuse, uncomplicated Category: Medical Plan: Patient reports living in a prison house at this time and feels she has good support. She is currently on methadone and is on take on bottles is working on tapering her dose down. She will continue to follow up with methadone Clinic. (6) Palpitations: Code(s): R00.2 - Palpitations Category: Medical Plan: The patient has a history of SVT and reports daily palpitations, but has not seen a joint filler in approximately three years. A Holter monitor has been ordered to re-evaluate cardiac rhythm. A new referral has been placed to cardiology at [facility], and the patient was given the referral information to call and schedule an appointment. Reviewed with patient red flag symptoms and when to present for re-evaluation. (7) Postprandial RUQ pain: Code(s): R10.11 - Right upper quadrant pain Category: Medical Plan: The patient's new-onset right upper quadrant pain, which is exacerbated by certain foods, is concerning for a gallbladder issue. An abdominal ultrasound has been ordered to evaluate the gallbladder. The patient was counseled to avoid trigger foods such as fried, greasy, and spicy items, as well as soda and caffeine. The patient was given instructions to go to the emergency department if the pain becomes consistent or if a fever develops, as this could indicate inflammation or infection. (8) Spider veins of both lower extremities: Code(s): I83.93 - Asymptomatic varicose veins of bilateral lower extremities Category: Medical Plan: The patient has known venous insufficiency and is scheduled for a procedure with [facility] in October. Records from this specialist will be requested. Management of knee pain is deferred until after the venous issue is addressed. Plan This note was constructed using voice recognition software. While every effort has been made to ensure accuracy and pathology transcriptionist, still areas may have been included sometimes these areas may affect the content or meeting of the given symptoms. Total time spent caring for the patient today was 20 minutes. This includes time spent before the visit reviewing the chart, time spent during the visit, and time spent after the visit and documentation. Patient was informed and verbally consented to the use of an ambient scribe for clinic note documentation during this visit. Orders: Orders ECG 5 day holter monitor Today R00.2 - Palpitations TSH reflex Free T4 Today Z13.29 - Encounter for screening for other suspected endocrine disorder Lipid Panel Today E78.00 - Pure hypercholesterolemia, unspecified Comprehensive Met. Panel Today Z00.00 - Encounter for general adult medical examination without abnormal findings Complete Blood Count Auto Diff Today Z13.0 - Encounter for screening for diseases of the blood and blood-forming organs and certain disorders involving the immune mechanism US abdomen complete Today R10.11 - Right upper quadrant pain Vitamin B12 and Folate Today Z13.21 - Encounter for screening for nutritional disorder Vitamin D 25-OH Total Today Z13.21 - Encounter for screening for nutritional disorder Referrals Cardiology Referral R00.2 - Palpitations Medications: New budesonide-formoterol 80-4.5 mcg/actuation (Symbicort) 1 inh inhalation BID 10.2 grams 0RF Changed From methadone 90 mg PO Q6H 0RF To methadone 85 mg PO Q6H
== END 2025-09-07 09:13 | disposition home or self-care (01) ==
LOC: HO.HMCH 08:28
DX: J45.20 Mild intermittent asthma, uncomplicated (principal); F11.10 Opioid abuse, uncomplicated; E66.09 Other obesity due to excess calories; Z68.32 Body mass index [BMI] 32.0-32.9, adult; M19.011 Primary osteoarthritis, right shoulder; E66.811 Obesity, class 1; M19.012 Primary osteoarthritis, left shoulder; E78.00 Pure hypercholesterolemia, unspecified; R00.2 Palpitations; R10.11 Right upper quadrant pain; I83.93 Asymptomatic varicose veins of bilateral lower extremities

== ENCOUNTER → 2025-09-07 08:27 | Outpatient (BNVA) | payer OTHER, SELFPAY | DX: E66.811 Obesity, class 1 (principal); E66.09 Other obesity due to excess calories; J45.20 Mild intermittent asthma, uncomplicated; M19.011 Primary osteoarthritis, right shoulder; M19.012 Primary osteoarthritis, left shoulder; E78.00 Pure hypercholesterolemia, unspecified; F11.10 Opioid abuse, uncomplicated; R00.2 Palpitations; R10.11 Right upper quadrant pain; I83.93 Asymptomatic varicose veins of bilateral lower extremities; Z68.37 Body mass index [BMI] 37.0-37.9, adult | CPT/HCPCS: 99212 ==

== ENCOUNTER 2025-09-22 09:43 | Outpatient (REF) | payer OTHER, SELFPAY ==
--- NOTE | ~2025-09-22 | US_ITS ---
CLINICAL HISTORY: R10.11 - Right upper quadrant pain US abdomen complete Comparison: None provided Findings: The pancreas is obscured by bowel gas. The visualized aorta and inferior vena cava are normal caliber. The liver is not well visualized, part of the liver is obscured by rib and lung shadowing, right hepatic lobe measures 17.6 cm in length, top-normal, the visualized liver is diffusely echogenic, no obvious focal mass is seen. No intrahepatic bile duct dilatation. The common duct is dilated up to 11 mm, distal CBD is not seen, no choledocholithiasis is visualized. The gallbladder is grossly normal, fundus is not well seen. Negative sonographic Fregoso sign. The main portal vein is patent with antegrade flow. The right kidney lower pole is obscured by bowel gas, otherwise grossly normal, 11.0 cm in length. The left kidney is normal, 11.4 cm in length. The spleen is normal, 9.0 cm in length. No free fluid in the abdomen. Impression: 1. Dilated CBD, uncertain etiology, distal obstructive process needs to be excluded, recommend correlation with LFT, MRCP can be helpful for further evaluation. 2. Echogenic liver parenchyma is non-specific, can be accentuated by body habitus, technique or related to parenchymal liver disease. This document has been electronically signed by: Melanie Moore MD on 09/22/2025 15:39:51
== END 2025-09-22 09:44 | disposition home or self-care (01) ==
LOC: HO.US 09:43
DX: R10.11 Right upper quadrant pain (principal)
CPT/HCPCS: 76700

== ENCOUNTER → 2025-09-22 09:45 | Outpatient (BNV) | payer OTHER, SELFPAY | PROVIDERS: Visit Provider Radiology Diagnostic Radiology | DX: K83.8 Other specified diseases of biliary tract (principal) | CPT/HCPCS: 76700 ==